=== PATIENT | female | born 1965 | race Caucasian/White ===

== ENCOUNTER 2017-12-08 11:49 | Outpatient (CLI) | payer BC, SELFPAY ==
--- NOTE | 2017-12-08 17:10 | DI.REPORT_ITS ---
SYMPTOM/DIAGNOSIS: SCREENING. BILATERAL SCREENING MAMMOGRAM: Mammograms were interpreted according to the usual protocol including computer analysis with CAD system, tomosynthesis and C view imaging. The patient's previous exams from [facility] in [place], [place] was requested however, is not yet received. If the previous exams become available an addendum will be issued. The patient is status post breast reduction. The breasts are composed of scattered fibroglandular densities, breast density category B. No suspicious masses or suspicious microcalcifications are seen. IMPRESSION: Category 1-B, negative mammogram. Routine screening is recommended. [facility] ASSESSMENT OF FINDINGS: Negative. Category 1. Patient will receive a letter notifying them of these results. BI-RADS category B. There are scattered areas of fibroglandular density.
== END 2017-12-08 11:50 ==
PROVIDERS: PCP Nurse Practitioner Family; Visit Provider Nurse Practitioner Family
DX: Z12.31 Encounter for screening mammogram for malignant neoplasm of breast (principal)
CPT/HCPCS: 77063; 77067

== ENCOUNTER 2018-03-12 06:10 | Day surgery (SDC) | payer BC, SELFPAY ==
[2018-03-12 06:26] VITALS: BP 110/74; PULSE 82; RESP 19; TEMP 36.5; O2SAT 99
[2018-03-12] MEDS: Lactated Ringers 1,000 ML 30 ML IV (07:15)
--- NOTE | 2018-03-12 08:06 | W.COLOREPORT ---
Date of service: 03/12/18 Time of Service: 07:40 Colonoscopy Report Date of procedure: 03/12/18 Pre-op diagnosis general: Colorectal cancer screening Post-op diagnosis procedure note: other (Normal colon to the cecum) Procedure: Colonoscopy to the cecum Surgeon: Randall Sood Anesthesia proc note operative: MAC (Terry Robins CRNA; ASA 2 Mallampati class II) Estimated blood loss (mL): 0 Pathology: none sent Complications: None Disposition: same day Indications: 53-year-old female presenting for colorectal cancer screening by colonoscopy. She has no family history of colorectal cancer, and has been asymptomatic. The colonoscopy procedure is been reviewed with her. The risks of the procedure have been discussed. All her questions been answered to her satisfaction. Consents been obtained to proceed with colonoscopy. Prep: Miralax/Dulcolax Procedure Start Time: :40 Procedure End Time: 07:54 Retraction Time: 8 Findings: In examining the colon from cecum to anus, no abnormalities were noted. Procedure Description: The patient was seen in the day surgery waiting area. Her identification was confirmed, and procedure checked. She was then brought to the procedure room. Monitoring for telemetry, blood pressure, oxygen saturation, and end tidal CO2 monitoring were applied. An appropriate time out was performed to confirm, identification, allergies, medication, procedure, was performed. Sedation was titrated for affect by the COMMERCIAL ENGINEER; Once adequate sedation was achieved, I performed a inspection of the external perineum, and a digitial rectal examination. No significant external abnormalities were noted. On digital rectal examination, there was no blood, no masses, good rectal tone. I advanced the colonoscope from the anus to the cecum under direct visualization. The cecum was identified by the ileal-cecal valve, and the appendiceal orifice. The scope was then withdrawn in circumferential manner from the cecum to the rectum. No abnormalites were noted in the colon. The scope was then withdrawn into the rectum, and retroflexed. No abnormalities were noted of the rectum or anorectal junction. The scope was then withdrawn, terminating the procedure. There were no complications during the procedure, and the patient tolerated the procedure well. She was returned to the day surgery recovery area in good condition. Plan: Will continue with routine screening for colorectal cancer according to current consensus guidelines, which is currently 10 years.
--- NOTE | 2018-03-12 08:12 | W.PM.DSUDISC ---
Discharge Plan Disposition Patient Disposition: HOME Condition: Good Discharge Details Reason For Visit: SCREENING Attending Provider: Randall Sood Primary Care Provider: Meseret Hayward Home Meds and New Rx's Prescriptions: Continue bupropion HCl [Wellbutrin XL] 300 mg tablet extended release 24 hr 300 mg PO QAM Qty: 90 RF: 3 mometasone [Nasonex] 50 mcg/actuation spray,non-aerosol 1 - 2 spray Intranasal DAILY PRN (Reason: allergy symptoms) Qty: 17 RF: 3 fexofenadine-pseudoephedrine [Cheli-D 12 Hour] 1 EACH tablet extended release 12 hr 1 tab-cap PO BID PRNQty: 60 RF: 0 albuterol sulfate [ProAir HFA] 8.5 GM HFA aerosol inhaler 1 - 2 puff Inhalation Q4H PRN RF: 0 buspirone 10 MG tablet 10 mg PO BID PRNQty: 90 RF: 3 Varicella-Zoster Ge/As01b/Pf [Shingrix Vial Kit] 50 MCG INJ 50 mcg IM ONCE Qty: 1 RF: 1 spironolactone 25 MG tablet 50 mg PO BID RF: 0 rizatriptan [Maxalt] 10 MG tablet 10 mg PO DAILY PRNQty: 10 RF: 3 ibuprofen 600 MG tablet 600 mg PO QID PRNRF: 0 jgeumpb-QW-IE-acetaminophen-GG [Vicks DayQuil-NyQuil Severe] 6.25-5-325 mg/15 mL (nt) Liquid, Sequential 30 ml PO RF: 0 iclxjmy-VC-TN-acetaminophen-GG [Day-Nite Severe Cold-Flu] 6.25-5-10-325 mg (nt) Tablets, Sequential 30 ml PO RF: 0 Discharge Instructions Instructions: Colonoscopy (DC) Stand Alone Forms: Colonoscopy Post Instructions, Aneesh Juarez (DSU) Activity:: Activity as Tolerated Diet:: As Tolerated Discharge Orders Discharge Orders: Discharge Order (Routine); Ordered 03/12/18 Ordered By: Randall Sood DS: Diagnosis Discharge Diagnosis (1) Colon cancer screening: Start date: 03/12/18 Start time: 07:40 Status: Acute Asessment and Plan: Colonoscopy performed Colonoscopy Report Date of procedure: 03/12/18 Pre-op diagnosis general: Colorectal cancer screening Post-op diagnosis procedure note: other (Normal colon to the cecum) Procedure: Colonoscopy to the cecum Surgeon: Randall Sood Anesthesia proc note operative: MAC (Terry Robins CRNA; ASA 2 Mallampati class II) Estimated blood loss (mL): 0 Pathology: none sent Complications: None Disposition: same day Indications: 53-year-old female presenting for colorectal cancer screening by colonoscopy. She has no family history of colorectal cancer, and has been asymptomatic. The colonoscopy procedure is been reviewed with her. The risks of the procedure have been discussed. All her questions been answered to her satisfaction. Consents been obtained to proceed with colonoscopy. Prep: Miralax/Dulcolax Procedure Start Time: 07:40 Procedure End Time: 07:54 Retraction Time: 8 Findings: In examining the colon from cecum to anus, no abnormalities were noted. Procedure Description: The patient was seen in the day surgery waiting area. Her identification was confirmed, and procedure checked. She was then brought to the procedure room. Monitoring for telemetry, blood pressure, oxygen saturation, and end tidal CO2 monitoring were applied. An appropriate time out was performed to confirm, identification, allergies, medication, procedure, was performed. Sedation was titrated for affect by the POST ACUTE CARE NURSE; Once adequate sedation was achieved, I performed a inspection of the external perineum, and a digitial rectal examination. No significant external abnormalities were noted. On digital rectal examination, there was no blood, no masses, good rectal tone. I advanced the colonoscope from the anus to the cecum under direct visualization. The cecum was identified by the ileal-cecal valve, and the appendiceal orifice. The scope was then withdrawn in circumferential manner from the cecum to the rectum. No abnormalites were noted in the colon. The scope was then withdrawn into the rectum, and retroflexed. No abnormalities were noted of the rectum or anorectal junction. The scope was then withdrawn, terminating the procedure. There were no complications during the procedure, and the patient tolerated the procedure well. She was returned to the day surgery recovery area in good condition. Plan: Will continue with routine screening for colorectal cancer according to current consensus guidelines, which is currently 10 years.
--- NOTE | 2018-03-12 08:16 | PDOC.DSDIS_ITS ---
Discharge Plan Disposition Patient Disposition: HOME Condition: Good Discharge Details Reason For Visit: SCREENING Attending Provider: Randall Sood Primary Care Provider: Meseret Hayward Home Meds and New Rx's Prescriptions: Continue bupropion HCl [Wellbutrin XL] 300 mg tablet extended release 24 hr 300 mg PO QAM Qty: 90 RF: 3 mometasone [Nasonex] 50 mcg/actuation spray,non-aerosol 1 - 2 spray Intranasal DAILY PRN (Reason: allergy symptoms) Qty: 17 RF: 3 fexofenadine-pseudoephedrine [Cheli-D 12 Hour] 1 EACH tablet extended release 12 hr 1 tab-cap PO BID PRNQty: 60 RF: 0 albuterol sulfate [ProAir HFA] 8.5 GM HFA aerosol inhaler 1 - 2 puff Inhalation Q4H PRN RF: 0 buspirone 10 MG tablet 10 mg PO BID PRNQty: 90 RF: 3 Varicella-Zoster Ge/As01b/Pf [Shingrix Vial Kit] 50 MCG INJ 50 mcg IM ONCE Qty: 1 RF: 1 spironolactone 25 MG tablet 50 mg PO BID RF: 0 rizatriptan [Maxalt] 10 MG tablet 10 mg PO DAILY PRNQty: 10 RF: 3 ibuprofen 600 MG tablet 600 mg PO QID PRNRF: 0 vqhznha-XS-AF-acetaminophen-GG [Vicks DayQuil-NyQuil Severe] 6.25-5-325 mg/15 mL (nt) Liquid, Sequential 30 ml PO RF: 0 lznyqoo-TU-US-acetaminophen-GG [Day-Nite Severe Cold-Flu] 6.25-5-10-325 mg (nt ) Tablets, Sequential 30 ml PO RF: 0 Discharge Instructions Instructions: Colonoscopy (DC) Stand Alone Forms: Colonoscopy Post Instructions, Aneesh Juarez (DSU) Activity:: Activity as Tolerated Diet:: As Tolerated Discharge Orders Discharge Orders: Discharge Order (Routine); Ordered 03/12/18 Ordered By: Randall Sood DS: Diagnosis Discharge Diagnosis (1) Colon cancer screening: Start date: 03/12/18 Start time: 07:40 Status: Acute Asessment and Plan: Colonoscopy performed Colonoscopy Report Date of procedure: 03/12/18 Pre-op diagnosis general: Colorectal cancer screening Post-op diagnosis procedure note: other (Normal colon to the cecum) Procedure: Colonoscopy to the cecum Surgeon: Randall Sood Anesthesia proc note operative: MAC (Terry Robins CRNA; ASA 2 Mallampati class II) Estimated blood loss (mL): 0 Pathology: none sent Complications: None Disposition: same day Indications: 53-year-old female presenting for colorectal cancer screening by colonoscopy. She has no family history of colorectal cancer, and has been asymptomatic. The colonoscopy procedure is been reviewed with her. The risks of the procedure have been discussed. All her questions been answered to her satisfaction. Consents been obtained to proceed with colonoscopy. Prep: Miralax/Dulcolax Procedure Start Time: 07:40 Procedure End Time: 07:54 Retraction Time: 8 Findings: In examining the colon from cecum to anus, no abnormalities were noted. Procedure Description: The patient was seen in the day surgery waiting area. Her identification was confirmed, and procedure checked. She was then brought to the procedure room. Monitoring for telemetry, blood pressure, oxygen saturation, and end tidal CO2 monitoring were applied. An appropriate time out was performed to confirm, identification, allergies, medication, procedure, was performed. Sedation was titrated for affect by the PATTERN STORAGE CLERK; Once adequate sedation was achieved, I performed a inspection of the external perineum, and a digitial rectal examination. No significant external abnormalities were noted. On digital rectal examination, there was no blood, no masses, good rectal tone. I advanced the colonoscope from the anus to the cecum under direct visualization. The cecum was identified by the ileal-cecal valve, and the appendiceal orifice. The scope was then withdrawn in circumferential manner from the cecum to the rectum. No abnormalites were noted in the colon. The scope was then withdrawn into the rectum, and retroflexed. No abnormalities were noted of the rectum or anorectal junction. The scope was then withdrawn, terminating the procedure. There were no complications during the procedure, and the patient tolerated the procedure well. She was returned to the day surgery recovery area in good condition. Plan: Will continue with routine screening for colorectal cancer according to current consensus guidelines, which is currently 10 years.
[2018-03-12 08:20] VITALS: BP 98/66; PULSE 69; RESP 16; TEMP 35.6; O2SAT 100
== END 2018-03-12 08:49 | disposition home or self-care (01) ==
PROVIDERS: PCP Nurse Practitioner Family; Visit Provider Surgery
PROC: 0DJD8ZZ Inspection of Lower Intestinal Tract, Via Natural or Artificial Opening Endoscopic (ICD-10-PCS; CPT 45378; principal; 2018-03-12 07:30)
DX: Z12.11 Encounter for screening for malignant neoplasm of colon (principal)
CPT/HCPCS: 45378

== ENCOUNTER 2019-07-01 08:39 | Outpatient (CLI) | payer BC, SELFPAY ==
--- NOTE | 2019-07-01 09:00 | DI.RAD_ITS ---
EXAM: XR SHOULDER RT COMPLETE 2+V INDICATION: Pain in R shoulder, lateral pain, decreased ROM M25.519 PAIN SHOULDER. COMPARISON: No exams were available for comparison TECHNIQUE: 2D digital imaging was performed. FINDINGS: Is mild spurring at the AC joint. There are few subchondral cysts. There is mild spurring at the un dersurface of the acromion. The glenohumeral joint is unremarkable. There are no tendon or joint sp fabian calcifications. IMPRESSION: Ocuk-fb-nngcmhes degenerative changes of the AC joint. DATA REPOSITORY: RADIATION DOSE DELIVERED:
== END 2019-07-01 08:59 ==
PROVIDERS: PCP Nurse Practitioner Family; Visit Provider Family Medicine
DX: M25.511 Pain in right shoulder (principal); M25.811 Other specified joint disorders, right shoulder; M19.011 Primary osteoarthritis, right shoulder
CPT/HCPCS: 73030

== ENCOUNTER 2019-12-02 07:52 | Outpatient (CLI) | payer BC, SELFPAY ==
[2019-12-05 07:52] LABS: SARS-CoV-2 RNA Undetected (Undetected); SARS-CoV-2 Specimen Source Nasopharynx
== END 2019-12-02 08:12 ==
PROVIDERS: PCP Nurse Practitioner Family; Visit Provider Nurse Practitioner Family
DX: Z11.59 Encounter for screening for other viral diseases (principal)
CPT/HCPCS: U0003

== ENCOUNTER 2020-12-17 03:18 | Outpatient (CLI) | payer BC, SELFPAY ==
[2020-12-17 15:32] LABS: Anion Gap 6.8 mmol/L (3-11); BUN 12 mg/dL (7-18); CO2 29.2 mmol/L (21.0-32.0); CREATININE 0.9 mg/dL (0.55-1.02); Calcium 9.2 mg/dL (8.5-10.1); Chloride 106 mmol/L (98-107); Glucose 87 mg/dL (74-106); Potassium 4.2 mmol/L (3.5-5.1); Sodium 142 mmol/L (136-145)
[2020-12-19 10:33] LABS: HIV-1/2 Ag & Ab Screen Negative (Negative)
[2020-12-19 10:40] LABS: Hepatitis C Ab w Rflx HCV PCR Negative (Negative)
== END 2020-12-17 03:19 | disposition home or self-care (01) ==
LOC: LBO 03:18
PROVIDERS: PCP Family Medicine; Visit Provider Nurse Practitioner Family
DX: Z13.1 Encounter for screening for diabetes mellitus (principal); Z11.4 Encounter for screening for human immunodeficiency virus [HIV]; Z11.59 Encounter for screening for other viral diseases
CPT/HCPCS: 36415; 80048; 86803; 87389

== ENCOUNTER 2020-12-28 03:38 | Outpatient (CLI) | payer BC, SELFPAY ==
--- NOTE | 2020-12-28 12:52 | DI.RAD_ITS ---
Exam(s) XR LUMBAR SPINE COMPLETE EXAM: XR LUMBAR SPINE COMPLETE CLINICAL HISTORY: Pain after a sneeze, previous lumbar frx, M54.5 TECHNIQUE: COMPARISON: No exams were available for comparison FINDINGS: Five views were obtained. Note is made of an apparent gallstone in the right upper quadrant. There is marked disc space narrowing at L5-S1 consistent with disc degeneration. Otherwise intervert ebral disc spaces are well maintained. There are mild hypertrophic changes involving facet joints an d endplates, particularly in the lower lumbar region. There is no evidence of compression fracture. There is no evidence spondylolysis spondylolisthesis. IMPRESSION: Mild degenerative changes of the lumbosacral spine. Degenerative changes are predominantly at L4-5 and L5-S1 levels. RADIATION DOSE DELIVERED: Total DLP
== END 2020-12-28 03:58 ==
PROVIDERS: PCP Family Medicine; Visit Provider Family Medicine
DX: M54.5 Low back pain (principal); Z87.81 Personal history of (healed) traumatic fracture; M51.36 Other intervertebral disc degeneration, lumbar region; M51.37 Other intervertebral disc degeneration, lumbosacral region
CPT/HCPCS: 72110

== ENCOUNTER 2021-03-02 19:27 | Observation (INO) | payer BC, SELFPAY ==
[2021-03-02] VITALS (23 sets, daily range): BP systolic 116–136; BP diastolic 58–72; PULSE 59–82; RESP 18; TEMP 36.1–36.8; O2SAT 92–100
--- NOTE | 2021-03-02 19:45 | RT.EKG_ITS ---
APPROVED REPORT Exam: Resting ECG Reason for Exam: epigastric pain Patient Location: E HR:68 bpm ECG Measurements Heart Rate 68 AXIS WY 151 P 69 QRSd 93 QRS -23 QT 404 T 32 QTc 431 Conclusion Sinus rhythm...normal P axis, V-rate 60- 99 Normal [place] Normal Electrocardiogram
--- NOTE | 2021-03-02 19:45 | DI.CT_ITS ---
Exam(s) CT ABDOMEN PELVIS W EXAM: CT ABDOMEN PELVIS W CLINICAL HISTORY: abdominal pain, epigastric, vomiting persistently. TECHNIQUE: Imaging Protocol: Axial computed tomography images with coronal and sagittal reformatted images were created and reviewed CONTRAST MATERIAL: Intravenous: Omnipaque 100cc Oral: None COMPARISON: No exams were available for comparison FINDINGS: VISUALIZED LUNG BASES: No nodules nor pleural effusions evident. ABDOMEN: SKIN-SUBCUTANEOUS: There is a well-defined 1.2 by 1.4 cm subcutaneous density over the anterior right abdomen which is contiguous with the subdermis but does not extend to the anterior abdominal wall mu sculature. There is no surrounding streaking. No other similar findings are seen elsewhere in the a bdomen and pelvis subcutaneous tissues. There is no ascites. LIVER: There are no focal hepatic lesions evident. No dilatation of intrahepatic ducts. GALLBLADDER/BILIARY: There is a large 2.9 x 2.6 cm lamellated gallstone located in the gallbladder ne ck. The gallbladder is somewhat distended but does not appear edematous and there is no pericholecys tic fluid. CBD diameter is upper normal. No calculi seen in the CBD. PANCREAS: No evidence of pancreatic mass nor dilatation of the pancreatic duct. SPLEEN: Spleen is not enlarged. No obvious intrasplenic lesions. Splenic and portal veins are paten t. ADRENALS: There are no significant adrenal masses. KIDNEYS:Bilateral extrarenal pelves are noted. However, no evidence of significant UPJ obstruction. No hydronephrosis. No calculi. No solid renal masses.. ABDOMINAL AORTA: Abdominal aorta is not enlarged. LYMPH NODES:There is no retroperitoneal nor paraaortic adenopathy. ABDOMINAL WALL: No evidence of significant anterior abdominal wall nor inguinal hernia. GI: There is no evidence of bowel obstruction, free air, nor abscess. PELVIS: GI: Appendix is not visualized. No indirect evidence of acute appendicitis.No evidence of sigmoid di verticulitis. LYMPH NODES: There is no intrapelvic nor inguinal adenopathy. REPRODUCTIVE: The uterus is surgically absent. The ovaries are seen. There is a small cyst in the l eft ovary which measures 10 x 11 millimeters. No free fluid in the pelvis. URINARY BLADDER: No calculi nor obvious masses evident OSSEOUS: No significant osseous lesions. Sacroiliac joints appear unremarkable. Advanced disc space narrowing noted at L5-S1 level as well as vacuum phenomenon within this diminished disc space. IMPRESSION: 1. There is a large gallstone in the gallbladder neck and the gallbladder is slightly distended but n ot edematous and there is no pericholecystic fluid. Correlation with clinical findings recommended. If clinically indicated ultrasound could be performed. This CBD and intrahepatic ducts are not dila olimpia. 2. There is a small 1.0 x 1.1 cm cyst in the left ovary. No free fluid. The uterus is surgically ab sent. 3. Appendix is not visualized. No evidence of obvious appendicitis nor diverticulitis. 4. There is a subdermal/subcutaneous well-defined noncalcified density over the anterior right abdomi nal wall measuring 12 x 14 millimeters. This does not reach the level of the abdominal musculature. This does not contain gas and there is no associated streaking in the adjacent subcutaneous fat. 5. there are few slightly prominent mesenteric lymph nodes in left side of the abdomen, these measuri ng less than 1 cm. No associated splenomegaly. RADIATION DOSE DELIVERED: 1,089.04mGy.cm Total DLP DATA REPOSITORY: All CT scans at this facility are submitted to the National Radiology Data Registry (NRDR) Dose Index Registry (DIR) with the [employer] (ACR). RADIATION OPTIMIZATION: All CT scans at this facility use at least one of these dose optimization te chniques: automated exposure control; mA and/or kV adjustment per patient size (includes targeted exa ms where dose is matched to clinical indication); or iterative reconstruction.
[2021-03-02 19:59] LABS: Abs Immature Grans 0.02 10^3/uL (0.0-0.06); Absolute Basophil Count 0.04 10^3/uL (0.0-0.2); Absolute Eosinophil Count 0.07 10^3/uL (0.0-0.7); Absolute Lymphocyte Count 1.98 10^3/uL (1.2-3.4); Absolute Monocyte Count 0.55 10^3/uL (0.1-0.8); Absolute Neutrophil Count 5.43 10^3/uL (1.2-6.7); Basophils % 0.5; Eosinophils % 0.9; HCT 44.7 % (36.0-46.0); HGB 14.5 g/dL (11.2-15.7); Immature Grans % 0.2; Lymphocytes % 24.5; MCH 29.3 pg (27.0-33.0); MCHC 32.4 % (32.0-36.0); MCV 90.3 fL (80-95); MPV 9.2 fL (8.0-11.0); Monocytes % 6.8; Neutrophils % 67.1; Nucleated RBC 0 %; Platelet Count 325 10^3/uL (130-400); RBC 4.95 10^6/uL (3.93-5.22); RDW 12.9 % (11.7-14.6); RDW-SD 42.5 fL; WBC 8.09 10^3/uL (4.4-10.8)
[2021-03-02] MEDS: Normal Saline 1,000 ML 1000 ML IV (20:01)
[2021-03-02] MEDS: fentaNYL 100 MCG/2 ML VIAL 50 MCG IVP ×2 (20:02→22:00)
[2021-03-02 20:13] LABS: ALT 29 U/L (14-59); AST 13 U/L (15-37); Albumin 4.6 g/dL (3.4-5.0); Alkaline Phosphatase 86 U/L (46-116); BUN 14 mg/dL (7-18); CREATININE 1.1 mg/dL (0.55-1.02); Calcium 9.8 mg/dL (8.5-10.1); Chloride 103 mmol/L (98-107); Estimated GFR 51.57 (mL/min/1.73m2); Glucose 102 mg/dL (74-106); Lipase 85 U/L (73-393); Magnesium 2.1 mg/dL (1.8-2.4); Potassium 3.4 mmol/L (3.5-5.1); Sodium 142 mmol/L (136-145); Total Protein 8.7 g/dL (6.4-8.2)
[2021-03-02] MEDS: FAMOTIDINE 20 MG/50 ML BAG 200 MG IVPB (20:13)
[2021-03-02 20:18] LABS: Troponin I < 0.05 ng/mL (<0.06)
[2021-03-02] MEDS: Omnipaque 350 MG/ML 100 ML BTL IJ (20:43)
--- NOTE | 2021-03-02 21:05 | W.ED.GENAD ---
Discharge Plan Disposition Patient Disposition: [facility] INPATIENT Condition: Stable Discharge Details Clinical Impression: Biliary colic Admit Date/Time: 03/02/21 21:34 Admit Provider: Whintey Noonan Attending Provider: Whitney Noonan Primary Care Provider: Sourav Perales ED Provider: Shani Darby Discharge Data Discharge Date/Time-TO BE ENTERED AT DEPARTURE: 03/02/21 22:14 Medical Decision Making Discussed with Dr. Noonan this patient has persistent pain and vomiting despite analgesia and antiemetic Patient have 2.6 cm gallstone I suspect biliary colic She'll need admission for pain control, analgesia, hydration, and possible intervention, Dr. Noonan is willing to admit Patient receiving second dose of Phenergan and 50 micrograms of fentanyl for pain and emesis Medical Records Medical records reviewed: Yes I reviewed the patient's medical records. Lab Data Lab results reviewed: Yes I reviewed the patient's lab results. HPI General Mode of arrival: ambulatory. Date/Time Provider Initiated Documentation: 03/02/21 19:28. Limitations to Documentation: no limitations. Information obtained by: patient. HPI Narrative: This 56-year-old female with history of ADHD, depression presents with report of right upper quadrant pain with persistent vomiting since Thursday. Patient evaluated by pcp previously and was started on Zofran for nausea. Denies any chest pain or shortness of breath. Has had persistent vomiting. Unable to eat or drink anything secondary to pain and emesis. Denies prior history of similar symptoms in the past. Denies known fatty food exacerbation. History of hysterectomy without any additional intra-abdominal surgeries. Denies any chance of . Denies fever or chills. Denies any spoiled food exposure. Denies any recent antibiotics. Related Data Home Medications Medication Instructions Recorded Confirmed mometasone 50 mcg/actuation nasal 1 - 2 spray INTRANASAL DAILY PRN 03/03/18 03/02/21 spray #17 gm buspirone 10 mg tablet 10 mg PO BID PRN #180 tab-cap 11/08/18 03/02/21 albuterol sulfate 90 mcg/actuation 1 - 2 puff INHALATION .Q4-6H PRN 11/14/19 12/24/20 aerosol inhaler #3 unit bupropion HCl 300 mg 24 hr tablet, 300 mg PO QAM #90 tab-cap 05/02/20 03/02/21 extended release fexofenadine 60 mg-pseudoephedrine 1 tab PO BID PRN #60 tab-cap 12/24/20 03/02/21 ER 120 mg tablet,ext.release,12 hr methocarbamol 750 mg tablet 750 mg PO Q8H PRN #90 tab 12/24/20 03/02/21 rizatriptan 10 mg tablet 10 mg PO DAILY PRN #30 tab-cap 12/24/20 03/02/21 ondansetron HCl [Zofran] 4 mg PO Q6H #20 tab 03/03/21 ondansetron HCl [Zofran] 4 mg PO Q6H #20 tab 03/03/21 03/02/21 tramadol 50 mg PO Q6H PRN #14 tab 03/03/21 Previous Rx's Medication Instructions Recorded mometasone 50 mcg/actuation nasal 1 - 2 spray INTRANASAL DAILY PRN 03/03/18 spray #17 gm buspirone 10 mg tablet 10 mg PO BID PRN #180 tab-cap 11/08/18 albuterol sulfate 90 mcg/actuation 1 - 2 puff INHALATION .Q4-6H PRN 11/14/19 aerosol inhaler #3 unit bupropion HCl 300 mg 24 hr tablet, 300 mg PO QAM #90 tab-cap 05/02/20 extended release fexofenadine 60 mg-pseudoephedrine 1 tab PO BID PRN #60 tab-cap 12/24/20 ER 120 mg tablet,ext.release,12 hr methocarbamol 750 mg tablet 750 mg PO Q8H PRN #90 tab 12/24/20 rizatriptan 10 mg tablet 10 mg PO DAILY PRN #30 tab-cap 12/24/20 ondansetron HCl [Zofran] 4 mg PO Q6H #20 tab 03/03/21 ondansetron HCl [Zofran] 4 mg PO Q6H #20 tab 03/03/21 tramadol 50 mg PO Q6H PRN #14 tab 03/03/21 Allergies Allergy/AdvReac Type Severity Reaction Status Date / Time phenazopyridine Allergy Severe Anaphylaxsi Verified 03/02/21 19:39 s clindamycin phosphate Allergy Mild Nausea Verified 03/02/21 19:39 [From Cleocin] Penicillins Allergy Mild Hives, Verified 03/02/21 19:39 high fever Sulfa (Sulfonamide Allergy Mild Hives Verified 03/02/21 19:39 Antibiotics) nitrofurantoin AdvReac Unknown Vomiting Verified 03/02/21 19:39 [From Macrobid] nitrofurantoin AdvReac Unknown Vomiting Verified 03/02/21 19:39 macrocrystalline [From Macrobid] clindamycin HCl AdvReac Nausea Verified 03/02/21 19:39 [From Cleocin] clindamycin palmitate HCl AdvReac Nausea Verified 03/02/21 19:39 [From Cleocin] dye Allergy Severe unknown Uncoded 03/02/21 19:39 which one, pt will call General Stated Complaint: Abd Prob CHAR: 2 Review of Systems All systems reviewed & are unremarkable except as noted in HPI and below PFSH Medical History (Updated 03/02/21 @ 21:59 by Whitney Noonan DO) Abnormal auditory perception (05/08/15) Adult acne (12/14/17) [place] [facility] [place] consult: spironolactone Rx Allergic rhinitis (02/28/15) Anxiety (01/10/15) Asthma NOT formally diagnosed Atopic dermatitis Attention deficit disorder Depression (02/01/15) Deviated nasal septum (04/30/15) Low back pain Migraines Postnasal drip (04/30/15) Surgical History H/O colonoscopy (03/12/18) dr zhao, no abnormalities, repeat ten years Reduction mammoplasty (05/04/03) Vaginal hysterectomy fallopian tube prolapse after Ovaries remain Family History Maternal Aunt Neoplasm Ovarian CA Father Cataract Social History (Updated 12/24/20 @ 13:52 by Essence Dixon LPN) Smoking/Tobacco Use Status: Never Smoking risk assessment performed?: Yes Alcohol Intake: current Alcohol Intake frequency: holidays/special occasions only Drug use: Never Substance use type: does not use Adopted: No Caregiver/Support person: No Foster care: No Household members: family and children Housing: house Number of Children: 2 Communication Needs: None and Corrective Lenses Do you need help understanding health information?: Rarely current occupation: Teacher Pets and animals: Yes Pets and animals: cat(s) and dog(s) Sexually active: No Current gender identity: decline to answer What is your relationship status?: refused to answer How often do you talk on the phone with friends or family?: decline to answer How often do you get together with friends or relatives?: decline to answer How often do you attend religion or mormonism services?: decline to answer Do you belong to any clubs or organized social groups?: decline to answer Panel score (0-1 are the most socially isolated patients): 0 What type of physical activity do you participate in: walking Duration: 15-30 minutes/day Frequency: daily Mily/Yazdanism: Anabaptist Special mily needs: No Seatbelt use: always Helmet use: Yes Drive intox or ride w/intox experienced truck driver: No Working smoke detector in home: No Carbon monox detector in home: No Do you feel safe at home: Yes Do you feel safe in your relationship?: Yes Female Reproductive History Menstrual Menopause type: surgical Exam Const General: cooperative and ill appearing HENNE Mouth: oral mucosae normal Eyes Pupils: PERRL Resp Effort & Inspection: normal respiratory effort Auscultation: clear to auscultation bilaterally Cardio Rate: regular rate Rhythm: regular rhythm GI Other: Right upper quadrant and epigastrium tenderness, guarding, no rebound No CVA tenderness, no abdominal bruit or pulsatile mass Skin General skin exam: no rashes or lesions noted Other: pallor Neuro General: patient alert and patient oriented x3 Extrem General: normal to inspection Other: distal pulses intact Course Vital Signs Vital signs: Vital Signs Temperature 36.1 C L 03/02/21 19:32 Pulse 80 03/02/21 19:32 Respiratory Rate 18 03/02/21 19:32 Blood Pressure 123/71 03/02/21 19:32 Pulse Oximetry 100 03/02/21 19:32 Temperature 36.1 C L 03/02/21 19:32 Temperature Source Temporal Artery Scan 03/02/21 19:32 Pulse 82 03/02/21 20:47 Respiratory Rate 18 03/02/21 19:32 Respiratory Effort 03/02/21 19:42 Blood Pressure 123/71 03/02/21 19:32 Pulse Oximetry 95 03/02/21 20:47 Oxygen Delivery Method Room Air 03/02/21 20:47 Oxygen Flow Rate 0 03/02/21 20:47 Pain Level 11 03/02/21 19:32 Lab/Test Results Lab/Test Results: Laboratory Tests Range/Units 03/02/21 03/02/21 19:40 19:40 WBC (4.4-10.8) 10^3/uL 8.09 RBC (3.93-5.22) 10^6/uL 4.95 Hgb (11.2-15.7) g/dL 14.5 Hct (36.0-46.0) % 44.7 MCV (80-95) fL 90.3 MCH (27.0-33.0) pg 29.3 MCHC (32.0-36.0) % 32.4 RDW (11.7-14.6) % 12.9 Plt Count (130-400) 10^3/uL 325 MPV (8.0-11.0) fL 9.2 Immature Gran % 0.2 Neutrophils % 67.1 Lymphocytes % 24.5 Monocytes % 6.8 Eosinophils % 0.9 Basophils % 0.5 Nucleated RBC % % 0 Absolute Neutrophils (1.2-6.7) 10^3/uL 5.43 Absolute Lymphocytes (1.2-3.4) 10^3/uL 1.98 Absolute Monocytes (0.1-0.8) 10^3/uL 0.55 Absolute Eosinophils (0.0-0.7) 10^3/uL 0.07 Absolute Basophils (0.0-0.2) 10^3/uL 0.04 Sodium (136-145) mmol/L 142 Potassium (3.5-5.1) mmol/L 3.4 L Chloride (98-107) mmol/L 103 Carbon Dioxide (21.0-32.0) mmol/L 28.0 Anion Gap (3-11) mmol/L 11.0 BUN (7-18) mg/dL 14 Creatinine (0.55-1.02) mg/dL 1.1 H Estimated GFR/1.73 m2 (mL/min/1.73m2) 51.57 Glucose (74-106) mg/dL 102 Calcium (8.5-10.1) mg/dL 9.8 Magnesium (1.8-2.4) mg/dL 2.1 Total Bilirubin (0.2-1.0) mg/dL 1.0 AST (15-37) U/L 13 L ALT (14-59) U/L 29 Alkaline Phosphatase (46-116) U/L 86 Troponin I (<0.06) ng/mL < 0.05 Total Protein (6.4-8.2) g/dL 8.7 H Albumin (3.4-5.0) g/dL 4.6 Lipase (73-393) U/L 85
--- NOTE | 2021-03-02 21:12 | DI.VRAD_ITS ---
PROCEDURE INFORMATION: Exam: CT Abdomen And Pelvis With Contrast Exam date and time: 03/02/2021 7:57 PM Age: 56 years old Clinical indication: Vomiting TECHNIQUE: Imaging protocol: Computed tomography of the abdomen and pelvis with contrast. COMPARISON: CR XR LUMBAR SPINE COMPLETE 12/28/2020 12:45 PM FINDINGS: Lungs: Lung bases are clear. Liver: Normal. No mass. Gallbladder and bile ducts: A large lamellated calcified stone is noted in the gallbladder, 2.6 cm. Gallbladder is mildly distended. There are no inflammatory changes by CT. No significant biliary ductal dilatation. Pancreas: Normal. No ductal dilation. Spleen: Normal. No splenomegaly. Adrenal glands: Normal. No mass. Kidneys and ureters: Negative for hydronephrosis. Symmetric enhancement. Nondilated ureters. No stones. Stomach and bowel: Unremarkable stomach. Nondilated small bowel. Mild wall thickening in the jejunum. Unremarkable terminal ileum. No inflammatory changes around the colon. Appendix: Normal appendix. Intraperitoneal space: Negative for free fluid or free air. Negative for abscess. Mild mesenteric fat stranding left abdomen. Vasculature: Unremarkable. No abdominal aortic aneurysm. Lymph nodes: Unremarkable. No enlarged lymph nodes. Urinary bladder: Unremarkable as visualized. Reproductive: Absent uterus. Unremarkable ovaries. Bones/joints: Moderate narrowing with endplate sclerosis and osteophyte formation noted at L5-S1. Moderate bilateral neural foraminal narrowing L5-S1. Soft tissues: Unremarkable. IMPRESSION: 1. Findings of enteritis with reactive mesenteric inflammation. 2. Large calcified gallstone. No specific findings of cholecystitis by CT. Dictated and Authenticated by: Shaheen Lomeli MD. Ordering:NATALIE Mcleod MD
[2021-03-02 21:52] LABS: Source Nasal/Nares
--- NOTE | 2021-03-02 21:55 | W.SURGCON ---
Date of service: 03/03/21 Time of Service: 14:00 Assessment and Plan Assessment and plan (1) Biliary colic: Status: Acute (2) Migraines: Status: Chronic (3) Attention deficit disorder: Status: Chronic Qualifiers: Attention deficit-hyperactivity disorder type: unspecified Hyperactivity presence: present Qualified Code(s): F90.9 - Attention-deficit hyperactivity disorder, unspecified type (4) Gallstone of bile duct with chronic gallbladder inflammation: Status: Acute Assessment and plan: Plan: The patient will be scheduled for laparoscopic cholecystectomy. The alternatives to surgery, risks, complications, and the possible need to convert to open cholecystectomy were discussed. Also bleeding, infection, pneumonia, blood clots, complications of anesthesia, damage to bowel, bladder, blood vessels, or bile ducts, liver, need for blood transfusions. Also: chronic pain, chronic diarrhea, reoccurrence of signs and symptoms, port site hernias, adhesions. All questions were answered and the patient elected to proceed with surgery. Also d/w pt dietary restrictions and warning signs of when to go to ER. Patient wants to go home today. She is feeling better. She is given an patient on low-fat/gallbladder diet. She should basically just stay on clear liquids and take the Zofran scheduled. But she should probably also take some MiraLAX or some milk of magnesia as the Zofran will make her very constipated. I will see her in the clinic at 9 AM on 03 04 and we will get her scheduled for surgery at that point. If she feels that she is having too much pain or starts vomiting again she should come back to the emergency room. Patient expressed understanding and will follow up tomorrow. We will plan surgery on 03/05. 60 minutes spent in total today doing consultation. (5) Dehydration, moderate: Status: Acute (6) Hypokalemia due to excessive gastrointestinal loss of potassium: Status: Acute (7) Intractable nausea and vomiting: Status: Acute History of Present Illness Narrative: Pt came to ED w/ RUQ pain and intractible vomiting. Pt has 2cm gallstone. NO signs of acute oneyda. pt is dehydrated w/ K 3.2. Patient states this is actually her third gallbladder attack she just did not realize what was. The pain is in the epigastric to right upper quadrant area he pretty much stays there. She has some back problems this is more so in the low back. She does have some changes of osteoarthritis on her x-rays. This last episode has been ongoing for about a week. She is only been able to eat clears. She has had severe pain and severe nausea. Days she is feeling better. She has no nausea no pain and she has been tolerating clear liquid She has had a hysterectomy and a tummy tuck with umbilical stump reimplanted. She still has her ovaries in place. She does appear to have a small hernia in the umbilicus. She is slow to wake up from anesthesia She is not diabetic. She is not not a smoker. She is never had a heart attack or stroke. She has no problems with hypertension. She has adult onset asthma. It does not limit her from doing her act activities of daily living. She has a lot of allergic type phenomenon. She had seen her PCP on . He had thought that this was gastritis or GERD. He had given her prescription for Zofran but this did not help. The Phenergan seemed to help more with her nausea. Consults Consult date: 03/03/21 Review of Systems All systems reviewed & are unremarkable except as noted in HPI and below [facility] Medical History (Updated 03/02/21 @ 21:59 by Whitney Noonan DO) Abnormal auditory perception (05/08/15) Adult acne (12/14/17) 12/14/2017 [facility] [place] Derm consult: spironolactone Rx Allergic rhinitis (02/28/15) Anxiety (01/10/15) Asthma NOT formally diagnosed Atopic dermatitis Attention deficit disorder Depression (02/01/15) Deviated nasal septum (04/30/15) Low back pain Migraines Postnasal drip (04/30/15) Surgical History H/O colonoscopy (03/12/18) dr zhao, no abnormalities, repeat ten years Reduction mammoplasty (05/04/03) Vaginal hysterectomy fallopian tube prolapse after Ovaries remain Family History Maternal Aunt Neoplasm Ovarian CA Father Cataract Social History (Updated 12/24/20 @ 13:52 by Essence Dixon LPN) Smoking/Tobacco Use Status: Never Smoking risk assessment performed?: Yes Alcohol Intake: current Alcohol Intake frequency: holidays/special occasions only Drug use: Never Substance use type: does not use Adopted: No Caregiver/Support person: No Foster care: No Household members: family and children Housing: house Number of Children: 2 Communication Needs: None and Corrective Lenses Do you need help understanding health information?: Rarely current occupation: Teacher Pets and animals: Yes Pets and animals: cat(s) and dog(s) Sexually active: No Current gender identity: decline to answer What is your relationship status?: refused to answer How often do you talk on the phone with friends or family?: decline to answer How often do you get together with friends or relatives?: decline to answer How often do you attend gnosticism or cheondoism services?: decline to answer Do you belong to any clubs or organized social groups?: decline to answer Panel score (0-1 are the most socially isolated patients): 0 What type of physical activity do you participate in: walking Duration: 15-30 minutes/day Frequency: daily Mily/Mormon: Adventism Special mily needs: No Seatbelt use: always Helmet use: Yes Drive intox or ride w/intox spotter driver: No Working smoke detector in home: No Carbon monox detector in home: No Do you feel safe at home: Yes Do you feel safe in your relationship?: Yes Female Reproductive History Menstrual Menopause type: surgical Exam Const General: cooperative, healthy appearing, comfortable, no acute distress, well developed and well groomed Nutritional Appearance: average body habitus and well nourished Orientation: alert, awake and oriented x3 HENMT Head: normal to inspection, normocephalic and atraumatic Ears: hearing grossly normal bilaterally and external ears normal General nose exam: external nose normal Face and sinus: normal facial exam and sinuses nontender Mouth: oral mucosae normal, lip normal, tongue normal and moist mucous membranes Teeth and gingiva: dentition normal Eyes General: appearance normal, both eyes and all related structures Conjunctivae: conjunctivae normal Sclera: sclerae normal Pupils: PERRL Neck Neck: normal visual inspection and full ROM Chest Chest: normal inspection of the chest Resp Effort & Inspection: normal respiratory effort, able to speak in complete sentences, no cough, no nasal flaring, not tachypneic and no use of accessory muscles Auscultation: clear to auscultation bilaterally, no rales, no rhonchi and no wheezes Cardio Jugular venous pressure: no JVD Rate: regular rate Rhythm: regular rhythm GI Inspection: normal to inspection, no edema and non-distended Palpation: soft, no masses, nontender and No ascites Auscultation: normal bowel sounds Other: She currently has no pain. When she was having pain it was in the epigastric and then radiated up into the right upper quadrant under the ribs. Did not radiate into the back. She has been having attacks off and on for at least a month. She had a tummy tuck and umbilical stump reimplanted. Is she does have a small umbilical hernia Skin General skin exam: no rashes or lesions noted Trauma: no lacerations or abrasions Neuro General: patient alert, patient oriented x3, oriented, gait normal, moves all extremities, no focal motor deficits and CN's II-XI intact bilaterally Cognition: normal cognition Speech: speech normal Gait: normal gait Motor: muscle tone normal throughout Extrem General: normal to inspection, full ROM and no clubbing, cyanosis or edema Psych Appearance: grossly normal and well kempt Mental Status: mental status grossly normal Speech and Movement: speech and movement normal Affect: normal affect Results Last Vital Signs Temp 36.1 C L 03/02/21 19:32 Pulse 82 03/02/21 20:47 Resp 18 03/02/21 19:32 BP 123/71 03/02/21 19:32 Pulse Ox 95 03/02/21 20:47 Labs Result diagrams: 03/03/21 06:18 03/03/21 06:18 Labs: Laboratory Results - last 24 hr 03/02/21 03/02/21 03/02/21 19:40 19:40 21:45 WBC 8.09 RBC 4.95 Hgb 14.5 Hct 44.7 MCV 90.3 MCH 29.3 MCHC 32.4 RDW 12.9 Plt Count 325 MPV 9.2 Immature Gran % 0.2 Neutrophils % 67.1 Lymphocytes % 24.5 Monocytes % 6.8 Eosinophils % 0.9 Basophils % 0.5 Nucleated RBC % 0 Absolute Neutrophils 5.43 Absolute Lymphocytes 1.98 Absolute Monocytes 0.55 Absolute Eosinophils 0.07 Absolute Basophils 0.04 Sodium 142 Potassium 3.4 L Chloride 103 Carbon Dioxide 28.0 Anion Gap 11.0 BUN 14 Creatinine 1.1 H Estimated GFR/1.73 m2 51.57 Glucose 102 Calcium 9.8 Magnesium 2.1 Total Bilirubin 1.0 AST 13 L ALT 29 Alkaline Phosphatase 86 Troponin I < 0.05 Total Protein 8.7 H Albumin 4.6 Lipase 85 COVID-19 Source Nasal/Nares
[2021-03-02 22:06] LABS: INR 1.1 (0.9-1.1); Prothrombin Time 10.6 sec (9.3-11.0)
[2021-03-02] MEDS: Lactated Ringers 1,000 ML 125 ML IV (22:15)
[2021-03-02 22:46] LABS: COVID-19 PCR Negative (Negative)
[2021-03-02] MEDS: MORPHine 2 MG/ML SYR IVP (23:34)
[2021-03-03] MEDS: FAMOTIDINE 20 MG/50 ML BAG 200 MG IVPB ×2 (00:48→10:04)
[2021-03-03] MEDS: MORPHine 2 MG/ML SYR IVP (03:17)
[2021-03-03] MEDS: Ondansetron 4 MG/2 ML VIAL IVP (04:12)
[2021-03-03 07:04] LABS: Abs Immature Grans 0.02 10^3/uL (0.0-0.06); Absolute Basophil Count 0.04 10^3/uL (0.0-0.2); Absolute Eosinophil Count 0.01 10^3/uL (0.0-0.7); Absolute Lymphocyte Count 1.72 10^3/uL (1.2-3.4); Absolute Monocyte Count 0.63 10^3/uL (0.1-0.8); Absolute Neutrophil Count 5.81 10^3/uL (1.2-6.7); Basophils % 0.5; Eosinophils % 0.1; HCT 38.9 % (36.0-46.0); HGB 12.3 g/dL (11.2-15.7); Immature Grans % 0.2; Lymphocytes % 20.9; MCH 29.2 pg (27.0-33.0); MCHC 31.6 % (32.0-36.0); MCV 92.4 fL (80-95); MPV 9.2 fL (8.0-11.0); Monocytes % 7.7; Neutrophils % 70.6; Nucleated RBC 0 %; Platelet Count 284 10^3/uL (130-400); RBC 4.21 10^6/uL (3.93-5.22); RDW 13.1 % (11.7-14.6); RDW-SD 44.6 fL; WBC 8.23 10^3/uL (4.4-10.8)
[2021-03-03 07:26] LABS: ALT 22 U/L (14-59); AST 12 U/L (15-37); Albumin 3.6 g/dL (3.4-5.0); Alkaline Phosphatase 71 U/L (46-116); Anion Gap 11.6 mmol/L (3-11); BUN 11 mg/dL (7-18); Bilirubin, Total 0.8 mg/dL (0.2-1.0); CO2 25.4 mmol/L (21.0-32.0); CREATININE 0.8 mg/dL (0.55-1.02); Calcium 8.8 mg/dL (8.5-10.1); Chloride 106 mmol/L (98-107); Glucose 106 mg/dL (74-106); Potassium 3.9 mmol/L (3.5-5.1); Sodium 143 mmol/L (136-145); Total Protein 6.9 g/dL (6.4-8.2)
[2021-03-03 07:35] VITALS: BP 126/73; PULSE 63; RESP 18; TEMP 37.2; O2SAT 97
[2021-03-03 07:35] LABS: C-Reactive Protein 0.91 mg/dL (0.0-0.3); Lipase 71 U/L (73-393)
--- NOTE | 2021-03-03 07:37 | INITIAL_ITS ---
- If Service Date Differs Date of service: 03/03/21 Time of Service: 07:37 Care Management Initial Assess REASON FOR HOSPITALIZATION:: Biliary Colic, Gallstone of bile duct, Dehydration, Hypokalemia PAST MEDICAL HISTORY/PAST SURGICAL HISTORY:: Medical History (Updated 03/02/21 @ 21:59 by Whitney Noonan DO). Abnormal auditory perception (05/08/15). Adult acne (12/14/17). [place] [facility] [place]erm consult: spironolactone Rx. Allergic rhinitis (02/28/15). Anxiety (01/10/15). Asthma. NOT formally diagnosed. Atopic dermatitis. Attention deficit disorder. Depression (02/01/15). Deviated nasal septum (04/30/15). Low back pain. Migraines. Postnasal drip (04/30/15). Surgical History . H/O colonoscopy (03/12/18). dr zhao, no abnormalities, repeat ten years. Reduction mammoplasty (05/04/03). Vaginal hysterectomy. fallopian tube prolapse after. Ovaries remain PREVIOUS FUNCTIONAL STATUS/SOCIAL/FAMILY SUPPORTS:: Felipa lives in [facility] with her elderly Aunt. She has a son in the [place] and a daughter in college in [facility]. She also has three dogs. Felipa is independent at baseline and drives. She is her aunts caregiver and shared that her mother and neighbor are overseeing her aunts care while she's in the hospital. CURRENT FUNCTIONAL STATUS:: Felipa was lying in bed when CM met with her. She is alert and oriented X3, pleasant and easily engaged in conversation. She denies pain and shared that her nausea and vomiting has been much better since she was given a Zofran injection early this morning. She found the sublingual Zofran prescribed by her doctor to be relatively ineffective. ADVANCE DIRECTIVES:: None, CM reviewed goals of Advance Directives and patient accepted a blank copy. Has patient been provided with info about the portal/API?: Yes Did the patient sign up for the portal?: No CODE STATUS:: Full Code INSURANCE COVERAGE / FINANCIAL ISSUES:: [employer]RICIA KUMAR CURRENT HOME/COMMUNITY SERVICES/EQUIPMENT:: None PRIMARY CARE PHYSICIAN:: Dr. Sourav Perales POTENTIAL DISCHARGE NEEDS:: Follow up appointments PATIENT/FAMILY EDUCATION NEEDS:: Review discharge instructions, limitations and plan to follow up with community providers. ask me three. TRANSPORTATION:: Via private vehicle with family. PLAN:: Anticipate Feilpa will be discharged home with no new services when medically cleared by MD. Will follow up with community providers and discharge plan of care as prescribed.
[2021-03-03] MEDS: Normal Saline Flush 10 ML SYR IVP (07:55)
[2021-03-03] MEDS: buPROPion-XL 150 MG TABCR 300 MG PO (07:55)
[2021-03-03] MEDS: Ketorolac 15 MG/ML VIAL IVP (07:55)
--- NOTE | 2021-03-03 14:37 | W.PM.DS.N ---
Date of service: 03/03/21 Time of Service: 14:38 DS: Diagnosis Discharge Diagnosis (1) Biliary colic: Status: Acute (2) Migraines: Status: Chronic (3) Attention deficit disorder: Status: Chronic (4) Gallstone of bile duct with chronic gallbladder inflammation: Status: Acute (5) Dehydration, moderate: Status: Acute (6) Hypokalemia due to excessive gastrointestinal loss of potassium: Status: Acute (7) Intractable nausea and vomiting: Status: Acute Discharge Plan Disposition Patient Disposition: HOME Condition: Stable Discharge Details Reason For Visit: Dehydration, N/V from gallstones Admit Date/Time: 03/02/21 21:34 Admit Provider: Whitney Noonan Attending Provider: Whitney Noonan Primary Care Provider: Sourav Perales Brinkley Meds and New Rx's Prescriptions: New ondansetron HCl [Zofran] 4 mg tablet 4 mg PO Q6H Qty: 20 RF: 0 tramadol 50 mg tablet 50 mg PO Q6H PRNQty: 14 RF: 0 Continued mometasone [Nasonex] 50 mcg/actuation spray,non-aerosol 1 - 2 spray Intranasal DAILY PRN (Reason: allergy symptoms) Qty: 17 RF: 3 fexofenadine-pseudoephedrine [Cheli-D 12 Hour] 60-120 mg tablet extended release 12 hr 1 tab PO BID PRN (Reason: sinus symptoms) Qty: 60 RF: 0 rizatriptan [Maxalt] 10 mg tablet 10 mg PO DAILY PRN (Reason: migraine headache) Qty: 30 RF: 3 methocarbamol 750 mg tablet 750 mg PO Q8H PRN (Reason: back spasms) Qty: 90 RF: 1 buspirone 10 mg tablet 10 mg PO BID PRN (Reason: anxiety) Qty: 180 RF: 3 albuterol sulfate [ProAir HFA] 90 mcg/actuation HFA aerosol inhaler 1 - 2 puff Inhalation .Q4-6H PRN (Reason: shortness of breath or wheezing) Qty: 3 RF: 3 bupropion HCl [Wellbutrin XL] 300 mg tablet extended release 24 hr 300 mg PO QAM Qty: 90 RF: 3 Changed ondansetron HCl [Zofran] 4 mg tablet 4 mg PO Q6H Qty: 20 RF: 0 Discontinued ibuprofen 800 mg tablet 800 mg PO Q8H PRN (Reason: pain) Qty: 90 RF: 3 Varicella-Zoster Ge/As01b/Pf [Shingrix Vial Kit] 50 MCG INJ 50 mcg IM ONCE Qty: 1 RF: 1 Vicks DayQuil-NyQuil Severe 6.25-5-325 mg/15 mL (nt) Liquid, Sequential 30 ml PO RF: 0 Day-Nite Severe Cold-Flu 6.25-5-10-325 mg (nt) Tablets, Sequential 30 ml PO RF: 0 Discharge Instructions Additional Instructions: -take zofran every 6hrs scheduled for nausea -Zofran will make you very constipated. Take Miralax of Milk of magnesia daily. -tramadol for pain -stick w/ clear liquids. (jello,Popsicle,low fat broth, etc). Avoid any diarrhea or Pork, or any food w/ high fat content (nuts, peanut butter, avacadoes, etc) -F/u w/ Dr. Noonan at 9am Thursday at [facility]. We are local at in the [facility] across from the hospital. Parking lot B. -don't take any ibuprofen/ASA/aleve. This may irritate your stomach. Tylenol (1000mg po every 6hrs as needed for pain). -Hold the spironalactone at this time. -if you have return of severe pain or uncontrolled nausea- return to the ER. -? Go easy on fat. Avoid high-fat foods, fried and greasy foods, and fatty sauces and gravies. Instead, choose nonfat or low-fat foods. Read labels and look for foods with 3 grams of fat or less a serving. High-fat foods include: ? Foods that are fried, like Korean fries and potato chips ? High-fat meats, such as gould, bologna, sausage, ground beef, and ribs, pork products ? High-fat dairy products, such as cheese, ice cream, cream, whole milk, and sour cream ? Pizza ? Foods made with lard or butter ? Creamy soups or sauces ? Meat gravies ? Chocolate ? Oils, such as palm and coconut oil ? Skin of chicken or turkey Nuts and nut butters Avocadoes Stand Alone Forms: Nursing Discharge Form Activity:: rest Equipment/Supplies:: No Equipment Needed Diet:: clears/low fat Discharge Orders Discharge Orders: Discharge Order (Routine); Ordered 03/03/21 Ordered By: Whitney Noonan DS: Summary Time Spent with Patient providing and/or coordinating discharge services: Less than 30 minutes Status at Discharge Functional status at discharge: independent ambulation Overall status at discharge: patient is progressing back to baseline Mental Status: mental status grossly normal Speech and Movement: speech and movement normal Mood: congruent mood Affect: normal affect Exam Psych Mental Status: mental status grossly normal Speech and Movement: speech and movement normal Mood: congruent mood Affect: normal affect DS: Data Vitals/I&O Vitals and I&O: Vital Signs Temperature 37.2 C 03/03/21 07:35 Temperature Source Tympanic 03/03/21 07:35 Pulse 63 03/03/21 07:35 Pulse Rhythm Regular 03/03/21 08:40 Respiratory Rate 18 03/03/21 07:35 Respiratory Effort Non-Labored 03/03/21 08:40 Respiratory Depth Normal 03/03/21 08:40 Respiratory Pattern Normal 03/03/21 08:40 Blood Pressure 126/73 03/03/21 07:35 Blood Pressure Mean 79 03/02/21 22:01 Pulse Oximetry 97 03/03/21 07:35 Oxygen Delivery Method Room Air 03/03/21 07:35 Oxygen Flow Rate 0 03/03/21 07:35 Pain Level 1 03/03/21 07:55 Intake & Output 03/02/21 03/03/21 03/03/21 23:59 11:59 23:59 Intake Total 1250.5 / 1250.5 1018.75 / 1018.75 Output Total 350 / 350 Balance 1250.5 / 1250.5 668.75 / 668.75 Weight 77.1 kg Intake: IV 1150.5 / 1150.5 1018.75 / 1018.75 Oral 100 / 100 Output: Urine 350 / 350 Other: Urine Color Yellow Urine Appearance Clear Cloudy Urine Odor Normal Voiding Methods Toilet Data Completed and Pending Labs on day of discharge: Labs from last 24 hours 03/03/21 03/03/21 03/02/21 06:18 06:18 21:45 WBC 8.23 RBC 4.21 Hgb 12.3 D Hct 38.9 MCV 92.4 MCH 29.2 MCHC 31.6 L RDW 13.1 Plt Count 284 MPV 9.2 Immature Gran % 0.2 Neutrophils % 70.6 Lymphocytes % 20.9 Monocytes % 7.7 Eosinophils % 0.1 Basophils % 0.5 Nucleated RBC % 0 Absolute Neutrophils 5.81 Absolute Lymphocytes 1.72 Absolute Monocytes 0.63 Absolute Eosinophils 0.01 Absolute Basophils 0.04 PT 10.6 INR 1.1 Sodium 143 Potassium 3.9 Chloride 106 Carbon Dioxide 25.4 Anion Gap 11.6 H BUN 11 Creatinine 0.8 Estimated GFR/1.73 m2 >= 60.00 Glucose 106 Calcium 8.8 Magnesium Total Bilirubin 0.8 AST 12 L ALT 22 Alkaline Phosphatase 71 Troponin I C-Reactive Protein 0.91 H Total Protein 6.9 Albumin 3.6 Lipase 71 COVID-19 Source SARS-CoV-2 (PCR) 03/02/21 03/02/21 03/02/21 21:45 19:40 19:40 WBC 8.09 RBC 4.95 Hgb 14.5 Hct 44.7 MCV 90.3 MCH 29.3 MCHC 32.4 RDW 12.9 Plt Count 325 MPV 9.2 Immature Gran % 0.2 Neutrophils % 67.1 Lymphocytes % 24.5 Monocytes % 6.8 Eosinophils % 0.9 Basophils % 0.5 Nucleated RBC % 0 Absolute Neutrophils 5.43 Absolute Lymphocytes 1.98 Absolute Monocytes 0.55 Absolute Eosinophils 0.07 Absolute Basophils 0.04 PT INR Sodium 142 Potassium 3.4 L Chloride 103 Carbon Dioxide 28.0 Anion Gap 11.0 BUN 14 Creatinine 1.1 H Estimated GFR/1.73 m2 51.57 Glucose 102 Calcium 9.8 Magnesium 2.1 Total Bilirubin 1.0 AST 13 L ALT 29 Alkaline Phosphatase 86 Troponin I < 0.05 C-Reactive Protein Total Protein 8.7 H Albumin 4.6 Lipase 85 COVID-19 Source Nasal/Nares SARS-CoV-2 (PCR) Negative [facility] Medical History (Updated 03/02/21 @ 21:59 by Whitney Noonan DO) Abnormal auditory perception (05/08/15) Adult acne (12/14/17) 12/14/2017 [facility] [place] Derm consult: spironolactone Rx Allergic rhinitis (02/28/15) Anxiety (01/10/15) Asthma NOT formally diagnosed Atopic dermatitis Attention deficit disorder Depression (02/01/15) Deviated nasal septum (04/30/15) Low back pain Migraines Postnasal drip (04/30/15) Surgical History H/O colonoscopy (03/12/18) dr zhao, no abnormalities, repeat ten years Reduction mammoplasty (05/04/03) Vaginal hysterectomy fallopian tube prolapse after Ovaries remain Family History Maternal Aunt Neoplasm Ovarian CA Father Cataract Social History (Updated 12/24/20 @ 13:52 by Essence Dixon LPN) Smoking/Tobacco Use Status: Never Smoking risk assessment performed?: Yes Alcohol Intake: current Alcohol Intake frequency: holidays/special occasions only Drug use: Never Substance use type: does not use Adopted: No Caregiver/Support person: No Foster care: No Household members: family and children Housing: house Number of Children: 2 Communication Needs: None and Corrective Lenses Do you need help understanding health information?: Rarely current occupation: Teacher Pets and animals: Yes Pets and animals: cat(s) and dog(s) Sexually active: No Current gender identity: decline to answer What is your relationship status?: refused to answer How often do you talk on the phone with friends or family?: decline to answer How often do you get together with friends or relatives?: decline to answer How often do you attend evangelical or bahai services?: decline to answer Do you belong to any clubs or organized social groups?: decline to answer Panel score (0-1 are the most socially isolated patients): 0 What type of physical activity do you participate in: walking Duration: 15-30 minutes/day Frequency: daily Mily/Religious: Restorationist Special mily needs: No Seatbelt use: always Helmet use: Yes Drive intox or ride w/intox 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
[2021-03-03 14:52] VITALS: BP 123/81; PULSE 64; RESP 18; TEMP 36.2; O2SAT 100
[2021-03-03] MEDS: Polyethylene Glycol 3350 17 GM PACKET PO (15:01)
== END 2021-03-03 15:32 | disposition home or self-care (01) ==
LOC: ER 21:53 → MS 22:17
PROVIDERS: Admitting Provider Surgery; Emergency Provider Physician Assistant; PCP Family Medicine; Visit Provider Surgery
DX: K80.44 Calculus of bile duct with chronic cholecystitis without obstruction (principal); R11.10 Vomiting, unspecified; F98.8 Other specified behavioral and emotional disorders with onset usually occurring in childhood and adolescence; E86.0 Dehydration; E87.6 Hypokalemia; F41.9 Anxiety disorder, unspecified; J45.909 Unspecified asthma, uncomplicated; F32.A Depression, unspecified; M54.50 Low back pain, unspecified; Z20.822 Contact with and (suspected) exposure to COVID-19; Z79.899 Other long term (current) drug therapy
CPT/HCPCS: 36415; 80053; 83690; 87635; 93005; 96361; 96365; 96368; 96375; 96376; 99285; J1650; 74177; 83735; 84484; 85025; 85610; 86140; 93010; G0378; J1885; J2270; J2405; J3010; J3490

== ENCOUNTER 2021-03-05 17:08 | Observation (INO) | payer BC, SELFPAY ==
[2021-03-05] VITALS (15 sets, daily range): BP systolic 95–127; BP diastolic 50–78; PULSE 62–75; RESP 15–23; TEMP 35.9–37.1; O2SAT 95–100; BMI 32.3
--- NOTE | 2021-03-05 08:05 | ANES.PREOP_ITS ---
General Info Date of Service Date Performed: 03/05/21 Height: 5 ft 1.5 in Weight: 78.925 kg Body Mass Index (BMI): 32.3 Surgical Procedure: Operation Date: 03/05/21 12:25 Proposed Procedures Side Surgeon p Cholecystectomy Laparoscopic, possible open Whitney Noonan, Meds Allergies and Home Medications Allergies Allergy/AdvReac Type Severity Reaction Status Date / Time phenazopyridine Allergy Severe Anaphylaxsi Verified 03/05/21 11:02 s clindamycin phosphate Allergy Mild Nausea Verified 03/05/21 11:02 [From Cleocin] Penicillins Allergy Mild Hives, Verified 03/05/21 11:02 high fever Sulfa (Sulfonamide Allergy Mild Hives Verified 03/05/21 11:02 Antibiotics) nitrofurantoin AdvReac Unknown Vomiting Verified 03/05/21 11:02 [From Macrobid] nitrofurantoin AdvReac Unknown Vomiting Verified 03/05/21 11:02 macrocrystalline [From Macrobid] clindamycin HCl AdvReac Nausea Verified 03/05/21 11:02 [From Cleocin] clindamycin palmitate HCl AdvReac Nausea Verified 03/05/21 11:02 [From Cleocin] dye Allergy Severe unknown Uncoded 03/05/21 11:02 which one, pt will call Home Medication Medication Instructions Recorded mometasone 50 mcg/actuation nasal 1 - 2 spray INTRANASAL DAILY PRN 03/03/18 spray #17 gm buspirone 10 mg tablet 10 mg PO BID PRN #180 tab-cap 11/08/18 albuterol sulfate 90 mcg/actuation 1 - 2 puff INHALATION .Q4-6H PRN 11/14/19 aerosol inhaler #3 unit bupropion HCl 300 mg 24 hr tablet, 300 mg PO QAM #90 tab-cap 05/02/20 extended release fexofenadine 60 mg-pseudoephedrine 1 tab PO BID PRN #60 tab-cap 12/24/20 ER 120 mg tablet,ext.release,12 hr rizatriptan 10 mg tablet 10 mg PO DAILY PRN #30 tab-cap 12/24/20 ondansetron HCl [Zofran] 4 mg PO Q6H #20 tab 03/03/21 tramadol 50 mg PO Q6H PRN #14 tab 03/03/21 Current Visit Medications: Current Medications Generic Name Dose Route Start Last Admin Trade Name Maurizioq PRN Reason Stop Dose Admin Acetaminophen 1,000 mg 03/05/21 06:00 Acetaminophen 500 Mg Tab PO 04/03/21 23:59 PREOP QUINTIN Gabapentin 300 mg 03/05/21 06:00 Gabapentin 300 Mg Cap PO 04/03/21 23:59 PREOP QUINTIN Ringer's Solution 1,000 mls @ 80 mls/hr 03/05/21 06:00 IV 04/03/21 23:59 INFUSION QUINTIN Piperacillin Sod/Tazobactam 50 mls @ 100 mls/hr 03/05/21 06:00 Sod 3.375 gm/ Sodium Chloride IVPB 03/05/21 18:00 PREOP QUINTIN Ondansetron HCl 4 mg/ Sodium 52 mls @ 200 mls/hr 03/04/21 23:34 Chloride IVPB Q6H PRN PRN IV Miscellaneous Supplies 1 each 03/05/21 06:00 Iv Access IV 04/03/21 23:59 DIRECTED QUINTIN Morphine Sulfate 2 mg 03/04/21 23:34 Morphine 4 Mg/Ml Syr IVP Q1H PRN PRN Sodium Chloride 0 ml 03/05/21 06:00 Normal Saline Flush 10 Ml Syr IV 04/03/21 23:59 PRN PRN Sodium Chloride 0 ml 03/05/21 06:00 Normal Saline 10 Ml Vial IJ 04/03/21 23:59 DIRECTED PRN Sterile Water 0 ml 03/05/21 06:00 Water,Injection,Sterile 10 Ml Vial IJ 04/03/21 23:59 DIRECTED PRN Tramadol HCl 50 mg 03/04/21 23:34 Tramadol 50 Mg Tab PO Q6H PRN PRN Pain PFSH Active Problems Active Problems: Problem Status Onset Code Intractable nausea and vomiting R11.2 Hypokalemia due to excessive gastrointestinal loss of potassium E87.6 Dehydration, moderate E86.0 Gallstone of bile duct with chronic gallbladder inflammation K80.40 Biliary colic K80.50 Low back pain M54.5 Asthma J45.909 Migraines G43.909 Atopic dermatitis L20.9 Screening for hyperlipidemia 11/02/17 Z13.220 Postnasal drip 04/30/15 R09.82 Nasal obstruction 04/30/15 J34.89 Deviated nasal septum 04/30/15 J34.2 Depression 02/01/15 F32.9 Attention deficit disorder F98.8 Anxiety 01/10/15 F41.9 Allergic rhinitis 02/28/15 J30.9 Adult acne 12/14/17 L70.9 Abnormal auditory perception 05/08/15 H93.299 Medical History Medical History Abnormal auditory perception (05/08/15) [place] (12/14/17) [place] [facility] [place] consult: spironolactone Rx Allergic rhinitis (02/28/15) Anxiety (01/10/15) Asthma NOT formally diagnosed Atopic dermatitis Attention deficit disorder Depression (02/01/15) Deviated nasal septum (04/30/15) Low back pain Migraines Postnasal drip (04/30/15) Surgical History Surgical History H/O colonoscopy (03/12/18) dr zhao, no abnormalities, repeat ten years Reduction mammoplasty (05/04/03) Vaginal hysterectomy fallopian tube prolapse after Ovaries remain Tobacco Smoking/Tobacco Use Status: Never Alcohol Alcohol Intake: current Alcohol intake frequency: holidays/special occasions only Substance Use Substance use: Never Substance use type: does not use Vital Signs and Lab Results Lab Results Blood Type / Crossmatch: No Data to Display Complete Blood Count: White Blood Count 8.23 10^3/uL (4.4-10.8) 03/03/21 06:18 03/03/21 Red Blood Count 4.21 10^6/uL (3.93-5.22) 03/03/21 06:18 03/03/21 Hemoglobin 12.3 g/dL (11.2-15.7) 03/03/21 06:18 03/03/21 Hematocrit 38.9 % (36.0-46.0) 03/03/21 06:18 03/03/21 Platelet Count 284 10^3/uL (130-400) 03/03/21 06:18 03/03/21 Complete Metabolic Panel: Sodium Level 143 mmol/L (136-145) 03/03/21 06:18 03/03/21 Potassium Level 3.9 mmol/L (3.5-5.1) 03/03/21 06:18 03/03/21 Chloride Level 106 mmol/L (98-107) 03/03/21 06:18 03/03/21 Carbon Dioxide Level 25.4 mmol/L (21.0-32.0) 03/03/21 06:18 03/03/21 Blood Urea Nitrogen 11 mg/dL (7-18) 03/03/21 06:18 03/03/21 Creatinine 0.8 mg/dL (0.55-1.02) 03/03/21 06:18 03/03/21 Estimated GFR/1.73 m2 >= 60.00 (mL/min/1.73m2) 03/03/21 06:18 03/03/21 Magnesium Level 2.1 mg/dL (1.8-2.4) 03/02/21 19:40 03/02/21 Calcium Level 8.8 mg/dL (8.5-10.1) 03/03/21 06:18 03/03/21 Albumin 3.6 g/dL (3.4-5.0) 03/03/21 06:18 03/03/21 Glucose Level 106 mg/dL (74-106) 03/03/21 06:18 03/03/21 C-Reactive Protein 0.91 mg/dL (0.0-0.3) H 03/03/21 06:18 03/03/21 Liver Function Panel: Alanine Aminotransferase (ALT/SGPT) 22 U/L (14-59) 03/03/21 06:18 03/03/21 Aspartate Amino Transf (AST/SGOT) 12 U/L (15-37) L 03/03/21 06:18 03/03/21 Coagulation Panel: INR International Normalized Ratio 1.1 (0.9-1.1) 03/02/21 21:45 03/02/21 Prothrombin Time 10.6 sec (9.3-11.0) 03/02/21 21:45 03/02/21 Cardiac Panel: Troponin I < 0.05 ng/mL (<0.06) 03/02/21 19:40 03/02/21 Arterial Blood Gas: No Data to Display Venous Blood Gas: No Data to Display Pancreas Panel: Lipase 71 U/L (73-393) 03/03/21 06:18 03/03/21 Thyroid Panel: No Data to Display Infectious Disease: Coronavirus (COVID-19)(PCR) Negative (Negative) 03/02/21 21:45 03/02/21 Coronavirus 2019 Source Nasal/Nares 03/02/21 21:45 03/02/21 Blood Cultures: No Data to Display Toxicology Panel: No Data to Display Imaging and Studies Imaging and Studies EKG Summary: 03/2021: Sinus rhythm. Anesthesia Assessment and Plan Anesthesia History Personal History: No History of Anesthesia Complications and PONV Family History: No Family History of Anesthesia Complications Exercise Tolerance Exercise Tolerance: Metabolic Equivalents>4 Cardiac & Pulmonary Exam Cardiac Exam: Normal S1/S2 Heart Sounds Pulmonary Exam: Clear Bilateral Breath Sounds Airway Exam Known Difficult Airway: No Mallampati Class: 3 Mouth Opening: Narrow (< 3cm) Thyromental Distance: Greater than 3 cm Neck Range of Motion: Full ROM Neck Circumference: Normal Teeth Condition: Normal Dentition and Fixed Braces ASA Classification ASA Score: ASA 2 Emergency Case?: No NPO Status NPO Status: NPO Clears >2 hours, Solids >8 hours Anesthesia Plan Resuscitation Status: Full Code Anesthesia Technique: General Anesthesia Airway Planned: Endotracheal Tube Monitors Used: Standard Monitors Preoperative Comments:: 56 yo female with gallstones and chronic GB inflammation for lap oneyda. Sig PMHx: Asthma (very rare albut), never smoker, occ EtOH. Previous Anes: colo/prop only no issues. states PONV in the past for almost every anes, no records here except for colo.
[2021-03-05] MEDS: Lactated Ringers 1,000 ML 80 ML IV (11:39)
[2021-03-05] MEDS: Acetaminophen 500 MG TAB 1000 MG PO (11:39)
[2021-03-05] MEDS: Gabapentin 300 MG CAP PO (11:39)
[2021-03-05] MEDS: PIPERACILLIN/TAZO 3.375 GM in Normal Saline 50 ML IVPB ×2 (13:00→23:05)
--- NOTE | 2021-03-05 14:11 | GB_PTH ---
PATIENT: Felipa Ryder LOC: U#:[id number] AGE/SX: 56/F ROOM: RE03/05/[address]: Whitney Noonan : 1965 BED: A DIS: 03/06/2021 SPEC #: [id number] RECD: 03/05/21 17:52 STATUS: VIVEK REQ #: [id number] NEELIMA: 03/05/21 14:[address]: Whitney Noonan DEPT: Surgical Specimen RECD BY: Shani Oscar ENTERED: 03/05/21 17:52 SP TYPE: GB OTHR DR: Sourav Perales DO Tissues: 1 - GALLBLADDER Procedures: GROSS AND MICRO LEVEL 3 Comments: [id number]
[2021-03-05] MEDS: Cellulose,Oxidized 4X8 1 PACKET MC (14:21)
--- NOTE | 2021-03-05 15:23 | W.PM.DSUDISC ---
Discharge Plan Disposition Patient Disposition: HOME Condition: Good Discharge Details Reason For Visit: GALL STONES Attending Provider: Whitney Noonan Primary Care Provider: Sourav Perales Home Meds and New Rx's Prescriptions: New tramadol [Ultram] 50 mg tablet 50 mg PO Q6H PRNQty: 10 RF: 0 Continued mometasone [Nasonex] 50 mcg/actuation spray,non-aerosol 1 - 2 spray Intranasal DAILY PRN (Reason: allergy symptoms) Qty: 17 RF: 3 fexofenadine-pseudoephedrine [Cheli-D 12 Hour] 60-120 mg tablet extended release 12 hr 1 tab PO BID PRN (Reason: sinus symptoms) Qty: 60 RF: 0 rizatriptan [Maxalt] 10 mg tablet 10 mg PO DAILY PRN (Reason: migraine headache) Qty: 30 RF: 3 buspirone 10 mg tablet 10 mg PO BID PRN (Reason: anxiety) Qty: 180 RF: 3 albuterol sulfate [ProAir HFA] 90 mcg/actuation HFA aerosol inhaler 1 - 2 puff Inhalation .Q4-6H PRN (Reason: shortness of breath or wheezing) Qty: 3 RF: 3 bupropion HCl [Wellbutrin XL] 300 mg tablet extended release 24 hr 300 mg PO QAM Qty: 90 RF: 3 tramadol 50 mg tablet 50 mg PO Q6H PRNQty: 14 RF: 0 ondansetron HCl [Zofran] 4 mg tablet 4 mg PO Q6H Qty: 20 RF: 0 Discharge Instructions Additional Instructions: Care after Gallbladder Surgery -Pain control: For the first 72 hours after surgery, take you pain meds continuously and not just when you have pain. Alternate Tylenol 1000mg by mouth every 8 hours, and Ibuprofen 600mg every 6 hours. Make sure you take ibuprofen with food and not on an empty stomach. Use the tramadol for breakthrough pain- pain that is greater than a 7. - Use ICE! Ice really helps to keep the swelling down, and swelling causes pain. Twenty minutes on, and then off, continuously for the first 72hours. After the first 72hrs, you can just use the Tylenol, ibuprofen or Celebrex, and ice, when you have pain. If you are taking narcotic pain medication, follow the instructions on the label and do not drive. Pain medications can make you very constipated. Make sure you are moving your bowels daily. If not, take Miralax, milk of magnesia or magnesium citrate. - Anesthesia makes you very constipated. Take a dose of milk of magnesia the morning after surgery. ? Use an ice bag for the first 72 hours. This helps to decrease swelling, which causes pain. It is normal to be more sore/painful and swollen towards the end of the day and first thing in the morning. ? Gallbladder surgery can make you very nauseated; use Zofran for nausea, for the first 24 hours. The nausea generally stops after 24 hours. ? Use milk of magnesia or prune juice to prevent constipation (this is a particular side effect of pain medication and anesthesia). Do not allow yourself to become constipated. ? Avoid fatty or greasy foods; introduce these slowly, with care, after about 1 month. High-fat foods include: ? Foods that are fried, like [place] fries and potato chips ? High-fat meats, such as gould, bologna, sausage, ground beef, and ribs, pork products ? High-fat dairy products, such as cheese, ice cream, cream, whole milk, and sour cream ? Pizza ? Foods made with lard or butter ? Creamy soups or sauces ? Meat gravies ? Chocolate ? Oils, such as palm and coconut oil ? Skin of chicken or turkey Nuts and nut butters Avacadoes ? Start out eating very small, bland amounts of food. Do not take pain pills on an empty stomach. - You will notice purple discoloration around the incisions. This is the ?skin glue?. This will wear off on its own. It is OK to shower after 24hrs. You do not need to cover the incisions. - -You should walk frequently, gradually, increasing the distance. You may climb stairs, just go slowly. ? Do not go swimming or sit in a hot tub for two weeks. ? There are no stitches to remove. ? Do not drive your car x72hrs and then only if you have no pain and can move freely. Do not drive if you are taking pain narcotic pain medications. ? You may resume sexual activity whenever pain and soreness subside, usually in 2 weeks. ? Do no lift anything over 5 lbs. for two weeks. ? You may return to work in one week, or when you feel able, provided you do not have to do any heavy lifting or prolonged standing. ? You should return to Dr. Noonan?s office for a post-op appointment about one week after surgery. Please call the Surgical Clinic at: [phone] to schedule an appointment. My Medications for pain and nausea are: Celebrex and ultram, and zofran When to Call the Office: ? If the incision becomes red or swollen, or there is more than a little drainage from it. ? If you develop a temperature higher than 100.5 F. ? If your eyes turn yellow ? Vomiting and can?t keep fluids down -Remove scopalamine patch in 72hrs. This will cause dry mouth and may make you drowsy. -F/u in 2 weeks as previously scheduled Activity:: see above Remove Dressings/Wound Care:: 24 hours Shower/Bathe:: 24 hours Diet:: low fat Discharge Orders Discharge Orders: Discharge Order (Routine); Ordered 03/04/21 Ordered By: Whitney Noonan DS: Diagnosis Discharge Diagnosis (1) Gallstone of bile duct with chronic gallbladder inflammation: Status: Acute (2) Hydrops of gallbladder: Status: Acute
--- NOTE | 2021-03-05 15:34 | W.PM.OP ---
Date of service: 03/05/21 Time of Service: 15:34 Operative Note Operative Note DATE OF PROCEDURE: 03/05/21 PRE-OP DIAGNOSIS: gallstones POST-OP DIAGNOSIS: other (sub acute oneyda/hydrops/gallstones ) PROCEDURE: lap oneyda SURGEON: Whitney Downs [employer] REPAIRER: Alissa Walker ANESTHESIA TYPE: Local By Surgeon and General LMA/ETT Refer to Anesthesia Record ESTIMATED BLOOD LOSS: 75 PATHOLOGY: other COMPLICATIONS: None Patient was transported to: PACU Patient's condition: stable Procedure Description: The pt is seen at the request of there PCP regarding acute on chronic cholecystitis, cholelithiasis. The pt has failed outpt conservative medical measures and is here today for laparoscopic cholecystectomy. Informed consent was obtained, explaining risks and benefits of the procedure including but not limited to bleeding, infection, pneumonia, blood clots, possible damage to bowel, bladder, blood vessels, bile ducts, possible open procedure, complications of general anesthesia and other unforetold complications. PROCEDURE: The patient agrees and is brought to the operative room suite and placed in supine position. Anesthesia was administered per the Department of Anesthesia. The patient did receive IV antibiotics. NG tube and Pena catheter are placed. The patient was prepped and draped in the usual sterile fashion using DuraPrep scrub solution. Pause for the cause was done. 20 mL of 1% buffered lidocaine was used for local anesthetization. The patient has had a previous abdominal plasty. Cutdown was done at the umbilicus in the standard fashion. Fingers placed in the abdomen. There were no intra-abdominal adhesions. A 10 mm Valdes trocar is placed and insufflation is begun. The camera was inserted through the port and shows no damage to underlying structures. A 5mm port was then placed in the epigastric position under direct visualization following creation of local field blocks as well as two 5 mm ports in the right upper quadrant. The omentum is adhered up to the gallbladder. This is bluntly retracted. The gallbladder is extremely distended and swollen. The wall is edematous it appears hydropic. Needle is used to decompress the gallbladder. 60 cc of white bile was removed. A clip was placed across the defect. The gallbladder fundus was grasped and retracted towards the right shoulder. Infundibulum was grasped and retracted laterally. The hepat-duodenal ligament is entered. The cystic duct and artery are dissected out and the most inferior portion of the gallbladder plate is removed from the liver and the critical view of safety was obtained after clearing away all fatty material. Endo Clips were placed across the duct and artery and these structures are divided. The remainder of the gallbladder was excised from the liver bed. The gallbladder was placed in a bag and brought out. The umbilical incision had to be extended to facilitate removal of the gallbladder. Examination of the gallbladder shows indeed the cystic duct and artery to have been divided. And there is some bleeding from the liver bed. Surgicel and FloSeal are placed. The remainder of the abdomen was copiously irrigated with a liter of saline. All saline is removed. There is no bleeding or bile leakage from the liver bed or the clips sites. All ports and instruments are removed. The umbilical defect, the fascia is closed with interrupted 0 Prolene. It is irrigated. Deep tissues closed with 4-0 Monocryl. Skin and subcutaneous tissue was closed with 4-0 Monocryl. SPonge and needle counts are correct. Pneumoperitoneum is evacuated and the port sites are monitored to make sure there is no bleeding at the time of desufflation. Port sites are irrigated and the skin is closed with 4-0 Monocryl in a running subcuticular fashion. Skin glue sterile dressings are applied. The patient tolerated the procedure well without complications, transferred to the recovery room in stable condition. WHITNEY DOWNS DO
--- NOTE | 2021-03-05 17:07 | W.PM.PROGNOT ---
Date of Service Date of service: 03/05/21 Time of Service: 17:08 Assessment and Plan Assessment and plan (1) Subacute infection: Status: Acute (2) Vaginal yeast infection: Status: Acute (3) Hydrops of gallbladder: Status: Acute (4) Intractable nausea and vomiting: Status: Acute (5) Gallstone of bile duct with chronic gallbladder inflammation: Status: Acute Subjective Subjective Interval history since last seen: pt having significant PONV. She is going to require obs for the nausea. She also has a subacute cholecystitis adn we will keep her on IV abx. She also has a vaginal yeast infection Exam Resp Auscultation: clear to auscultation bilaterally GI Other: dressing c/d/i Objective Last Vital Signs Temp 36.6 C 03/05/21 16:55 Pulse 66 03/05/21 16:55 Resp 22 03/05/21 16:55 BP 127/76 03/05/21 16:55 Pulse Ox 99 03/05/21 16:55
[2021-03-05] MEDS: Ketorolac 15 MG/ML VIAL IVP (17:10)
[2021-03-05] MEDS: ACETAMINOPHEN 1,000 MG/100 ML BTL 400 MG IVPB (20:32)
[2021-03-05] MEDS: traMADol 50 MG TAB PO (22:47)
[2021-03-06] MEDS: Ketorolac 15 MG/ML VIAL IVP ×2 (00:16→06:40)
[2021-03-06] MEDS: Normal Saline 1,000 ML 125 ML IV ×2 (00:16→09:15)
[2021-03-06] MEDS: PIPERACILLIN/TAZO 3.375 GM in Normal Saline 50 ML IVPB (02:24)
[2021-03-06] MEDS: ACETAMINOPHEN 1,000 MG/100 ML BTL 400 MG IVPB ×2 (02:58→10:25)
[2021-03-06] MEDS: Normal Saline Flush 10 ML SYR IVP (06:41)
--- NOTE | 2021-03-06 07:34 | W.PM.PROGNOT ---
Date of Service Date of service: 03/06/21 Time of Service: 07:34 Assessment and Plan Assessment and plan (1) Hydrops of gallbladder: Status: Acute Assessment and plan: POD #1 s/p laparoscopic cholecystectomy Tolerated clear liquids over night will progress diet this morning. Will follow low fat diet Pain has been well controlled over night with toradol and tylenol. Denies having any nausea or vomiting. Encouraged sitting up in the chair for meals and throughout the morning. Pulmonary toilet D/C home later today (2) Intractable nausea and vomiting: Status: Acute Assessment and plan: Resolved (3) Vaginal yeast infection: Status: Acute Assessment and plan: She will require 2 more days of Fluconazole 100mg once a day for treatment of the vaginal yeast infection. Subjective Subjective Interval history since last seen: Patient reports that she is feeling okay this morning. Denies having any nausea or vomiting. She tolerated clear liquids well over night. She reports that she is very hungry. Exam Const General: cooperative, healthy appearing and comfortable Resp Effort & Inspection: normal respiratory effort, no audible wheezes and no cough GI Palpation: soft, no guarding and tender Objective Last Vital Signs Temp 35.9 C L 03/05/21 23:50 Pulse 62 03/05/21 23:50 Resp 15 03/05/21 23:50 BP 103/67 03/05/21 23:50 Pulse Ox 96 03/05/21 23:50
--- NOTE | 2021-03-06 07:44 | DSE_ITS ---
Documented by User: RAF Hammer 03/06/21 08:03 Date of service: 03/06/21 Time of Service: 07:44 DS: Diagnosis Discharge Diagnosis (1) Hydrops of gallbladder: Status: Acute (2) Intractable nausea and vomiting: Status: Acute (3) Vaginal yeast infection: Status: Acute Discharge Plan Disposition Patient Disposition: HOME Condition: Good Discharge Details Reason For Visit: PONV S/P Lap Yessenia Admit Date/Time: 03/05/21 17:08 Admit Provider: Whitney Noonan Attending Provider: Whitney Noonan [facility] Hospital Course: 56 y/o female with billiary colic and gallstones, she under went laparoscopic cholecystectomy with Dr. Noonan. She was admitted for observation overnight secondary to post-op nausea, vomiting and pain. This improved through the evening and this morning she denies having any nausea or vomiting. She expresses abdominal tenderness, which has been well controlled with toradol and tylenol. Also of note the patient has a vaginal yeast infection, which she has been started on PO fluconazole, she will require a total of 3 days of treatment. Will send in a prescription for remaining course. Home Meds and New Rx's Prescriptions: New tramadol [Ultram] 50 mg tablet 50 mg PO Q6H PRNQty: 10 RF: 0 fluconazole 100 mg tablet 100 mg PO DAILY Qty: 2 RF: 0 Continued mometasone [Nasonex] 50 mcg/actuation spray,non-aerosol 1 - 2 spray Intranasal DAILY PRN (Reason: allergy symptoms) Qty: 17 RF: 3 fexofenadine-pseudoephedrine [Cheli-D 12 Hour] 60-120 mg tablet extended release 12 hr 1 tab PO BID PRN (Reason: sinus symptoms) Qty: 60 RF: 0 rizatriptan [Maxalt] 10 mg tablet 10 mg PO DAILY PRN (Reason: migraine headache) Qty: 30 RF: 3 buspirone 10 mg tablet 10 mg PO BID PRN (Reason: anxiety) Qty: 180 RF: 3 albuterol sulfate [ProAir HFA] 90 mcg/actuation HFA aerosol inhaler 1 - 2 puff Inhalation .Q4-6H PRN (Reason: shortness of breath or wheezing) Qty: 3 RF: 3 bupropion HCl [Wellbutrin XL] 300 mg tablet extended release 24 hr 300 mg PO QAM Qty: 90 RF: 3 tramadol 50 mg tablet 50 mg PO Q6H PRNQty: 14 RF: 0 ondansetron HCl [Zofran] 4 mg tablet 4 mg PO Q6H Qty: 20 RF: 0 Discharge Instructions Additional Instructions: Care after Gallbladder Surgery -Pain control: For the first 72 hours after surgery, take you pain meds contin uously and not just when you have pain. Alternate Tylenol 1000mg by mouth every 8 hours, and Ibuprofen 600mg every 6 hours. Make sure you take ibuprofen with food and not on an empty stomach. Use the tramadol for breakthrough pain- pain that is greater than a 7. - Use ICE! Ice really helps to keep the swelling down, and swelling causes pain. Twenty minutes on, and then off, continuously for the first 72hours. After the first 72hrs, you can just use the Tylenol, ibuprofen or Celebrex, and ice, when you have pain. If you are taking narcotic pain medication, follow the instructions on the label and do not drive. Pain medications can make you very constipated. Make sure you are moving your bowels daily. If not, take Miralax, milk of magnesia or magnesium citrate. - Anesthesia makes you very constipated. Take a dose of milk of magnesia the morning after surgery. ? Use an ice bag for the first 72 hours. This helps to decrease swelling, which causes pain. It is normal to be more sore/painful and swollen towards the end of the day and first thing in the morning. ? Gallbladder surgery can make you very nauseated; use Zofran for nausea, for the first 24 hours. The nausea generally stops after 24 hours. ? Use milk of magnesia or prune juice to prevent constipation (this is a particular side effect of pain medication and anesthesia). Do not allow yourself to become constipated. ? Avoid fatty or greasy foods; introduce these slowly, with care, after about 1 month. High-fat foods include: ? Foods that are fried, like Welsh fries and potato chips ? High-fat meats, such as gould, bologna, sausage, ground beef, and ribs, pork products ? High-fat dairy products, such as cheese, ice cream, cream, whole milk, and sour cream ? Pizza ? Foods made with lard or butter ? Creamy soups or sauces ? Meat gravies ? Chocolate ? Oils, such as palm and coconut oil ? Skin of chicken or turkey Nuts and nut butters Avacadoes ? Start out eating very small, bland amounts of food. Do not take pain pills on an empty stomach. - You will notice purple discoloration around the incisions. This is the ?skin glue?. This will wear off on its own. It is OK to shower after 24hrs. You do not need to cover the incisions. - -You should walk frequently, gradually, increasing the distance. You may climb stairs, just go slowly. ? Do not go swimming or sit in a hot tub for two weeks. ? There are no stitches to remove. ? Do not drive your car x72hrs and then only if you have no pain and can move freely. Do not drive if you are taking pain narcotic pain medications. ? You may resume sexual activity whenever pain and soreness subside, usually in 2 weeks. ? Do no lift anything over 5 lbs. for two weeks. ? You may return to work in one week, or when you feel able, provided you do not have to do any heavy lifting or prolonged standing. ? You should return to Dr. Noonan?s office for a post-op appointment about one week after surgery. Please call the Surgical Clinic at: [phone] to schedule an appointment. My Medications for pain and nausea are: Celebrex and ultram, and zofran When to Call the Office: ? If the incision becomes red or swollen, or there is more than a little drainage from it. ? If you develop a temperature higher than 100.5 F. ? If your eyes turn yellow ? Vomiting and can?t keep fluids down -Remove scopalamine patch in 72hrs. This will cause dry mouth and may make you drowsy. -F/u 03/18 at 9:30am Stand Alone Forms: Anesthesia Discharge Inst., Nursing Discharge Form Referrals: Whitney Noonan DO [OSTEOPATHIC DOCTOR] - 03/18/21 9:30 am Activity:: Activity as Tolerated Equipment/Supplies:: No Equipment Needed Diet:: low fat Discharge Orders Discharge Orders: Discharge Order (Routine); Ordered 03/04/21 Ordered By: Whitney Noonan DS: Summary Time Spent with Patient providing and/or coordinating discharge services: Less than 30 minutes Status at Discharge Functional status at discharge: independent ambulation Overall status at discharge: patient is back to baseline Mental Status: mental status grossly normal Speech and Movement: speech and movement normal Mood: congruent mood Affect: normal affect Exam Const General: cooperative, healthy appearing and comfortable Orientation: alert and oriented x3 Resp Effort & Inspection: normal respiratory effort, no audible wheezes and no cough GI Inspection: normal to inspection and non-distended Palpation: soft, no guarding and tender Psych Mental Status: mental status grossly normal Speech and Movement: speech and movement normal Mood: congruent mood Affect: normal affect DS: Data Vitals/I&O Vitals and I&O: Vital Signs Temperature 35.9 C L 03/05/21 23:50 Temperature Source Tympanic 03/05/21 23:50 Pulse 62 03/05/21 23:50 Pulse Rhythm Regular 03/06/21 04:41 Respiratory Rate 15 03/05/21 23:50 Respiratory Effort Non-Labored 03/06/21 04:41 Respiratory Depth Normal 03/06/21 04:41 Respiratory Pattern Normal 03/06/21 04:41 Blood Pressure 103/67 03/05/21 23:50 Pulse Oximetry 96 03/05/21 23:50 Respiratory End-tidal CO2 46 03/05/21 17:10 Oxygen Delivery Method Room Air 03/05/21 23:50 Oxygen Flow Rate 0 03/05/21 23:50 Pain Level 7 03/06/21 06:40 Intake & Output 03/05/21 03/06/21 03/06/21 18:59 06:59 18:59 Intake Total 460 / 1210 750 / 1210 Output Total 275 / 775 500 / 775 Balance 185 / 435 250 / 435 Weight 77.2 kg Intake: IV 450 / 1200 750 / 1200 Oral 10 10 Output: Urine 200 / 700 500 / 700 Estimated Blood Loss 75 / 75 Other: Urine Color Pale Yellow Urine Appearance Clear Clear Urine Odor None Normal Emesis Description None Voiding Methods Bedpan Toilet [facility] Medical History Abnormal auditory perception (05/08/15) Adult acne (12/14/17) 12/14/[place] [facility] [place] consult: spironolactone Rx Allergic rhinitis (02/28/15) Anxiety (01/10/15) Asthma NOT formally diagnosed Atopic dermatitis Attention deficit disorder Depression (02/01/15) Deviated nasal septum (04/30/15) Low back pain Migraines Postnasal drip (04/30/15) Surgical History H/O colonoscopy (03/12/18) dr zhao, no abnormalities, repeat ten years Reduction mammoplasty (05/04/03) Vaginal hysterectomy fallopian tube prolapse after Ovaries remain Family History Maternal Aunt Neoplasm Ovarian CA Father Cataract Social History Smoking/Tobacco Use Status: Never Smoking risk assessment performed?: Yes Alcohol Intake: current Alcohol Intake frequency: holidays/special occasions only Drug use: Never Substance use type: does not use Adopted: No Caregiver/Support person: No Foster care: No Household members: family and children Housing: house Number of Children: 2 Communication Needs: None and Corrective Lenses Do you need help understanding health information?: Rarely current occupation: Teacher Pets and animals: Yes Pets and animals: cat(s) and dog(s) Sexually active: No Current gender identity: decline to answer What is your relationship status?: refused to answer How often do you talk on the phone with friends or family?: decline to answer How often do you get together with friends or relatives?: decline to answer How often do you attend denominational or confucianist services?: decline to answer Do you belong to any clubs or organized social groups?: decline to answer Panel score (0-1 are the most socially isolated patients): 0 What type of physical activity do you participate in: walking Duration: 15-30 minutes/day Frequency: daily Mily/Gnosticist: Alevism Special mily needs: No Seatbelt use: always Helmet use: Yes Drive intox or ride w/intox 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 Female Reproductive History Menstrual Menopause type: surgical Documented by User: Georgia Miller MD 03/06/21 09:55 Discharge Plan Disposition Patient Disposition: HOME Condition: Good Discharge Details Reason For Visit: PONV S/P Lap Yessenia Admit Date/Time: 03/05/21 17:08 Admit Provider: Whitney Noonan Attending Provider: Whitney Noonan [facility] Hospital Course: 56 y/o female with billiary colic and gallstones, she under went laparoscopic cholecystectomy with Dr. Noonan. She was admitted for observation overnight secondary to post-op nausea, vomiting and pain. This improved through the evening and this morning she denies having any nausea or vomiting. She expresses abdominal tenderness, which has been well controlled with toradol and tylenol. Also of note the patient has a vaginal yeast infection, which she has been started on PO fluconazole, she will require a total of 3 days of treatment. Will send in a prescription for remaining course. Home Meds and New Rx's Prescriptions: New tramadol [Ultram] 50 mg tablet 50 mg PO Q6H PRNQty: 10 RF: 0 fluconazole 100 mg tablet 100 mg PO DAILY Qty: 2 RF: 0 Continued mometasone [Nasonex] 50 mcg/actuation spray,non-aerosol 1 - 2 spray Intranasal DAILY PRN (Reason: allergy symptoms) Qty: 17 RF: 3 fexofenadine-pseudoephedrine [Cheli-D 12 Hour] 60-120 mg tablet extended release 12 hr 1 tab PO BID PRN (Reason: sinus symptoms) Qty: 60 RF: 0 rizatriptan [Maxalt] 10 mg tablet 10 mg PO DAILY PRN (Reason: migraine headache) Qty: 30 RF: 3 buspirone 10 mg tablet 10 mg PO BID PRN (Reason: anxiety) Qty: 180 RF: 3 albuterol sulfate [ProAir HFA] 90 mcg/actuation HFA aerosol inhaler 1 - 2 puff Inhalation .Q4-6H PRN (Reason: shortness of breath or wheezing) Qty: 3 RF: 3 bupropion HCl [Wellbutrin XL] 300 mg tablet extended release 24 hr 300 mg PO QAM Qty: 90 RF: 3 tramadol 50 mg tablet 50 mg PO Q6H PRNQty: 14 RF: 0 ondansetron HCl [Zofran] 4 mg tablet 4 mg PO Q6H Qty: 20 RF: 0 Discharge Instructions Additional Instructions: Care after Gallbladder Surgery -Pain control: For the first 72 hours after surgery, take you pain meds continuously and not just when you have pain. Alternate Tylenol 1000mg by mouth every 8 hours, and Ibuprofen 600mg every 6 hours. Make sure you take ibuprofen with food and not on an empty stomach. Use the tramadol for breakthrough pain- pain that is greater than a 7. - Use ICE! Ice really helps to keep the swelling down, and swelling causes pain. Twenty minutes on, and then off, continuously for the first 72hours. After the first 72hrs, you can just use the Tylenol, ibuprofen or Celebrex, and ice, when you have pain. If you are taking narcotic pain medication, follow the instructions on the label and do not drive. Pain medications can make you very constipated. Make sure you are moving your bowels daily. If not, take Miralax, milk of magnesia or magnesium citrate. - Anesthesia makes you very constipated. Take a dose of milk of magnesia the morning after surgery. ? Use an ice bag for the first 72 hours. This helps to decrease swelling, which causes pain. It is normal to be more sore/painful and swollen towards the end of the day and first thing in the morning. ? Gallbladder surgery can make you very nauseated; use Zofran for nausea, for the first 24 hours. The nausea generally stops after 24 hours. ? Use milk of magnesia or prune juice to prevent constipation (this is a particular side effect of pain medication and anesthesia). Do not allow yourself to become constipated. ? Avoid fatty or greasy foods; introduce these slowly, with care, after about 1 month. High-fat foods include: ? Foods that are fried, like Welsh fries and potato chips ? High-fat meats, such as gould, bologna, sausage, ground beef, and ribs, pork products ? High-fat dairy products, such as cheese, ice cream, cream, whole milk, and sour cream ? Pizza ? Foods made with lard or butter ? Creamy soups or sauces ? Meat gravies ? Chocolate ? Oils, such as palm and coconut oil ? Skin of chicken or turkey Nuts and nut butters Avacadoes ? Start out eating very small, bland amounts of food. Do not take pain pills on an empty stomach. - You will notice purple discoloration around the incisions. This is the ?skin glue?. This will wear off on its own. It is OK to shower after 24hrs. You do not need to cover the incisions. - -You should walk frequently, gradually, increasing the distance. You may climb stairs, just go slowly. ? Do not go swimming or sit in a hot tub for two weeks. ? There are no stitches to remove. ? Do not drive your car x72hrs and then only if you have no pain and can move freely. Do not drive if you are taking pain narcotic pain medications. ? You may resume sexual activity whenever pain and soreness subside, usually in 2 weeks. ? Do no lift anything over 5 lbs. for two weeks. ? You may return to work in one week, or when you feel able, provided you do not have to do any heavy lifting or prolonged standing. ? You should return to Dr. Noonan?s office for a post-op appointment about one week after surgery. Please call the Surgical Clinic at: [phone] to schedule an appointment. My Medications for pain and nausea are: Celebrex and ultram, and zofran When to Call the Office: ? If the incision becomes red or swollen, or there is more than a little drainage from it. ? If you develop a temperature higher than 100.5 F. ? If your eyes turn yellow ? Vomiting and can?t keep fluids down -Remove scopalamine patch in 72hrs. This will cause dry mouth and may make you drowsy. -F/u 03/18 at 9:30am Stand Alone Forms: Anesthesia Discharge Inst., Nursing Discharge Form Referrals: Whitney Noonan DO [OSTEOPATHIC DOCTOR] - 03/18/21 9:30 am Activity:: Activity as Tolerated Equipment/Supplies:: No Equipment Needed Diet:: low fat Discharge Orders Discharge Orders: Discharge Order (Routine); Ordered 03/04/21 Ordered By: Whitney Noonan [facility] Medical History Abnormal auditory perception (05/08/15) Adult acne (12/14/17) 12/14/2017 [facility] [place] Derm consult: spironolactone Rx Allergic rhinitis (02/28/15) Anxiety (01/10/15) Asthma NOT formally diagnosed Atopic dermatitis Attention deficit disorder Depression (02/01/15) Deviated nasal septum (04/30/15) Low back pain Migraines Postnasal drip (04/30/15) Surgical History H/O colonoscopy (03/12/18) dr zhao, no abnormalities, repeat ten years Reduction mammoplasty (05/04/03) Vaginal hysterectomy fallopian tube prolapse after Ovaries remain Family History Maternal Aunt Neoplasm Ovarian CA Father Cataract Social History Smoking/Tobacco Use Status: Never Smoking risk assessment performed?: Yes Alcohol Intake: current Alcohol Intake frequency: holidays/special occasions only Drug use: Never Substance use type: does not use Adopted: No Caregiver/Support person: No Foster care: No Household members: family and children Housing: house Number of Children: 2 Communication Needs: None and Corrective Lenses Do you need help understanding health information?: Rarely current occupation: Teacher Pets and animals: Yes Pets and animals: cat(s) and dog(s) Sexually active: No Current gender identity: decline to answer What is your relationship status?: refused to answer How often do you talk on the phone with friends or family?: decline to answer How often do you get together with friends or relatives?: decline to answer How often do you attend denominational or confucianist services?: decline to answer Do you belong to any clubs or organized social groups?: decline to answer Panel score (0-1 are the most socially isolated patients): 0 What type of physical activity do you participate in: walking Duration: 15-30 minutes/day Frequency: daily Mily/Gnosticist: Alevism Special mily needs: No Seatbelt use: always Helmet use: Yes Drive intox or ride w/intox 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
--- NOTE | 2021-03-06 07:49 | W.ANESPOSTOP ---
Postoperative Evaluation Date, Time and Location Date Performed: 03/06/21 Time Performed: 07:00 Patient Location: Med/Surg Vital Signs Most Recent Imported Vital Signs: Most Recent Vital Signs Temp Pulse Resp BP Pulse Ox 35.9 C L 62 15 103/67 96 03/05/21 23:50 03/05/21 23:50 03/05/21 23:50 03/05/21 23:50 03/05/21 23:50 Pain Score Most Recent Pain Score: Most Recent Pain Score Pain Level 7 03/06/21 06:40 Assessment Mental Status: Awake (Alert & Oriented to Patient Baseline) Airway and Respiratory Function: Patent airway with normal (patient baseline) respiratory exam Cardiovascular Function: Hemodynamically Stable Hydration Status: Adequately Hydrated Nausea & Vomiting: No Nausea or Vomiting Pain: Pain is tolerable per patient Peripheral Nerve Block: Patient did not receive a nerve block Postoperative Comments:: Discussed scop patch and importance of washing her hands after she removes it. Discussed that in my attempt to keep her pain and nausea free that she likely got more of the dexmed/ketamine/mag/lidocaine then she needed, and apologized for her having to be so sleepy post operatively. She is happy that she has no nausea and her pain has been comparable to when she got admitted.
[2021-03-06 08:17] VITALS: BP 107/64; PULSE 77; RESP 16; TEMP 36.6; O2SAT 99
[2021-03-06] MEDS: Milk of Magnesia 30 ML CUP PO (08:28)
[2021-03-06] MEDS: Fluconazole 100 MG TAB PO (08:28)
[2021-03-06] MEDS: buPROPion-XL 150 MG TABCR 300 MG PO (08:28)
== END 2021-03-06 12:39 | disposition home or self-care (01) ==
LOC: MS 17:26
PROVIDERS: Admitting Provider Surgery; PCP Family Medicine; Visit Provider Surgery
PROC: 0FT44ZZ Resection of Gallbladder, Percutaneous Endoscopic Approach (ICD-10-PCS; CPT 47562; principal; 2021-03-05 12:15)
DX: K80.10 Calculus of gallbladder with chronic cholecystitis without obstruction (principal); K82.1 Hydrops of gallbladder; E87.6 Hypokalemia; E86.0 Dehydration; Z23 Encounter for immunization; M54.50 Low back pain, unspecified; J45.909 Unspecified asthma, uncomplicated; G43.909 Migraine, unspecified, not intractable, without status migrainosus; F32.A Depression, unspecified; F98.8 Other specified behavioral and emotional disorders with onset usually occurring in childhood and adolescence; F41.8 Other specified anxiety disorders; B37.3 Candidiasis of vulva and vagina; K91.0 Vomiting following gastrointestinal surgery
CPT/HCPCS: 47562; 90686; 88304; G0378; J0131; J1100; J1885; J2001; J2250; J2270; J2405; J2543; J2704; J3475

== ENCOUNTER → 2021-10-11 00:04 | Outpatient (CLI) | payer BC, SELFPAY | PROVIDERS: PCP Family Medicine; Visit Provider Family Medicine ==

== ENCOUNTER → 2021-12-20 00:14 | Outpatient (CLI) | payer BC, SELFPAY ==
--- NOTE | 2021-12-20 08:00 | DI.MAMMO_ITS ---
Exam(s) MAMMO SCREENING EXAM: MAMMO SCREENING CLINICAL HISTORY: screening,Z12.39 TECHNIQUE: Mammograms were interpreted according to the usual protocol including computer analysis w [employer] CAD system, tomosynthesis and C-view imaging. COMPARISON: 2018 FINDINGS: The breasts are composed of scattered fibroglandular densities, Breast Density category B. No suspicious masses or suspicious microcalcifications are seen. There is mild scarring related to b ilateral breast reduction. No skin thickening or abnormal axillary lymph nodes are seen. There has been no significant change from prior exams. IMPRESSION: BI-RADS Category 1, Negative mammogram Yearly screening mammography is recommended. Breast Density - Category B, scattered fibroglandular densities. A negative radiographic report should not delay biopsy if a dominant or clinically suspicious mass is present. Up to ten percent of cancers are not identified on mammography. A negative report may reinforce clinical impression. Adenosis and dense breasts may obscure an underlying neoplasm. False positive reports average 6 to 10%. Patient will receive a letter notifying them of these results.
== END ==
PROVIDERS: PCP Family Medicine; Visit Provider Family Medicine
DX: Z12.31 Encounter for screening mammogram for malignant neoplasm of breast (principal)
CPT/HCPCS: 77063; 77067

== ENCOUNTER 2023-05-02 15:05 | Outpatient (REF) | payer BC, SELFPAY ==
[2023-05-02 15:54] LABS: ALT 26 U/L (14-59); AST 15 U/L (15-37); Albumin 3.9 g/dL (3.4-5.0); Alkaline Phosphatase 80 U/L (46-116); Anion Gap 5.2 mmol/L (3-11); BUN 14 mg/dL (7-18); Bilirubin, Total 0.5 mg/dL (0.2-1.0); CO2 30.8 mmol/L (21.0-32.0); Calcium 9.5 mg/dL (8.5-10.1); Chloride 104 mmol/L (98-107); Estimated GFR 65.71 (mL/min/1.73m2); Glucose 80 mg/dL (74-106); Sodium 140 mmol/L (136-145); Total Protein 7.2 g/dL (6.4-8.2)
== END 2023-05-02 15:06 | disposition home or self-care (01) ==
LOC: LBN 15:05
PROVIDERS: PCP Family Medicine; Visit Provider Nurse Practitioner Family
DX: U07.1 COVID-19 (principal)
CPT/HCPCS: 80053

== ENCOUNTER → 2023-10-30 00:11 | Outpatient (CLI) | payer BC, SELFPAY ==
--- NOTE | 2023-10-30 06:45 | DI.MAMMO_ITS ---
Exam(s) MAMMO SCREENING EXAM: MAMMO SCREENING CLINICAL HISTORY: screening,z12.39 TECHNIQUE: Bilateral full field digital CC and MLO mammographic images were obtained with 3D tomosyn thesis and utilizing computer aided detection (CAD). COMPARISON: Available for comparison. FINDINGS: Masses/Architectural Distortion: None seen. The patient has had prior bilateral breast reduction surg gladis. Microcalcifications: No suspicious pleomorphic-type are seen. Skin Thickening/Nipple Retraction: None. IMPRESSION: 1. No significant interval change with no specific features of malignancy noted. 2. Unless there is more urgent need, screening mammography is recommended, as per [employer] guidelines. BI-RADS Category 1 - Negative Breast Density - Category B - Scattered areas of fibroglandular density Breast density category C or D implies that the patient has dense breast tissue. Dense breast tissue is very common and is not abnormal but dense breast tissue can make it harder to find cancer on a ma mmogram. Also, dense breast tissue may increase their breast cancer risk. This information about the result of the mammogram report was provided to the patient to raise their awareness. Use this report when you speak with the patient about their risks for breast cancer, which includes their family hist ory. At that time, you may recommend for more screening tests (Ultrasound or MRI) as they might be us eful based on their risk. A negative radiographic report should not delay biopsy if a dominant or clinically suspicious mass is present. Up to ten percent of cancers are not identified on mammography. A negative report may reinforce clinical impression. Adenosis and dense breasts may obscure an underlying neoplasm. False positive reports average 6 to 10%. Patient will receive a letter notifying them of these results.
== END ==
PROVIDERS: PCP Family Medicine; Visit Provider Family Medicine
DX: Z12.39 Encounter for other screening for malignant neoplasm of breast (principal)
CPT/HCPCS: 77063; 77067

== ENCOUNTER 2023-10-30 01:28 | Outpatient (CLI) | payer BC, SELFPAY ==
[2023-10-30 09:35] LABS: Calculated LDL 86 mg/dL (<100); Cholesterol 167 mg/dL (<200); HDL Cholesterol 65 mg/dL (40-60); Triglyceride 81 mg/dL (<150)
== END 2023-10-30 01:29 | disposition home or self-care (01) ==
LOC: LBO 01:28
PROVIDERS: PCP Family Medicine; Visit Provider Family Medicine
DX: Z13.6 Encounter for screening for cardiovascular disorders (principal); Z77.011 Contact with and (suspected) exposure to lead
CPT/HCPCS: 36415; 80061; 83655

== ENCOUNTER 2024-05-31 02:18 | Outpatient (CLI) | payer OTHER, SELFPAY ==
--- NOTE | 2024-05-31 07:45 | DI.MRI_ITS ---
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 COMPARISON: There are no plain films of the right knee available at the time of this MRI interpretat ion. FINDINGS: EFFUSION: There is a small-moderate size knee joint effusion and there is a E Simmons's cyst in the med ial popliteal fossa which measures 4 cm length by 1 cm AP x 0.8 cm wide. There are no obvious loose intra-articular bodies. There is subcutaneous soft tissue edema anterior to the patella and along the anterior aspect of the patellar ligament. There is no defined fluid collection to suggest prepatellar bursitis. There is a tiny amount of fluid between the inferior aspect of the patellar ligament and the anterior tibial tu bercle within the most inferior aspect of the intra-articular Hoffa fat. This is most probably just part of the joint effusion. There is no abnormal signal within the patellar ligament nor within the anterior tibial tubercle. MARROW:There is no evidence of fracture, bone contusion, nor osteochondral defects.. There are no si gnificant osseous lesions. There is, however, a single degenerative subarticular cyst in the mid tib ial plateau subjacent to the medial tibial spine, this measuring 3 x 4 mm and with some mild surroun ding bone edema. PATELLOFEMORAL COMPARTMENT: The quadriceps tendon is intact. The patellar ligament is intact. There is some intrasubstance edema and thin cleft with in the retropatellar cartilage over the latera l facet and there is also significant thinning of the articular cartilage over the adjacent anterior aspect of the lateral femoral condyle, best seen on the axial images. There are no degenerative suba rticular cysts nor bone edema evident within the patella.There is no intraosseous signal to suggest r ecent patellar dislocation. There are no patellar retinacular tears. CRUCIATE LIGAMENTS: The anterior cruciate ligament is intact.The posterior cruciate ligament is intac t. MEDIAL COMPARTMENT/MEDIAL MENISCUS: There is a tear of the posterior horn of the medial meniscus loca olimpia 9 mm from the root attachment. There no flipped meniscal fragments. There is no tear in the out er 3rd of the medial meniscus. Frontal horn is intact. There is no meniscocapsular separation.. Th ere is some very mild focal subarticular edema in the outer aspect of the medial femoral condyle over the main weight-bearing surface. There is no formed osteochondral defect at this level. No margina l osteophytes in the medial compartment. MEDIAL COLLATERAL LIGAMENT: Intact LATERAL COMPARTMENT/LATERAL MENISCUS: There is no evidence of lateral meniscal tear.There are no jimy dral defects, osteochondral defects, subarticular marrow edema, nor osteophytes evident. ILIOTIBIAL BAND: Intact LATERAL COLLATERAL LIGAMENT COMPLEX: The fibular collateral ligament is intact. The biceps femoris t endon is intact.Popliteus muscle and tendon are intact. IMPRESSION: 1. There is tear of the posterior horn of the medial meniscus adjacent to the root insertion site. N o flipped meniscal fragments. No bucket-handle configuration. The anterior horn of the medial menis cus appears intact. There is very mild focal subarticular edema in the main weight-bearing surface o f the medial femoral condyle. There is no osteochondral defect at this level. No prominent articula r cartilage loss and no marginal osteophytes evident in the medial compartment. 2. No significant findings in the lateral compartment. 3. 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 However, there is thinning of the articular cartil age over the corresponding anterior aspect of the lateral femoral condyle. 4. Cruciate and collateral ligaments are intact as is the iliotibial band 5. Moderate size joint effusion and thin 4 cm length Simmons cyst in the popliteal fossa. There are n o obvious loose intra-articular bodies. Other findings as above. DATA REPOSITORY:
== END 2024-05-31 02:38 ==
PROVIDERS: PCP Family Medicine; Visit Provider Family Medicine
DX: M23.221 Derangement of posterior horn of medial meniscus due to old tear or injury, right knee (principal)
CPT/HCPCS: 73721

== ENCOUNTER 2024-09-23 19:14 | Outpatient (REF) | payer BC, SELFPAY | END 2024-09-23 19:15 | disposition home or self-care (01) | LOC: LBN 19:14 | PROVIDERS: PCP Family Medicine; Visit Provider Physician Assistant Medical | DX: J02.9 Acute pharyngitis, unspecified (principal) | CPT/HCPCS: 87070 ==

== ENCOUNTER 2025-02-23 13:28 | Outpatient (CLI) | payer BC, SELFPAY ==
--- NOTE | 2025-02-23 | DI.RAD_ITS ---
Exam(s) XR SOFT TISSUE NECK EXAM: XR SOFT TISSUE NECK CLINICAL HISTORY: H/O STREP THROAT,? EPIGLOTTIS,PERSONAL H/O OTHER DISEASE,Z87.09. TECHNIQUE: 2D digital imaging was performed. Two images were obtained. COMPARISON: No exams were available for comparison FINDINGS: BONES: No acute fracture is present. There are mild degenerative changes seen from C4-5 through C6-C7. SOFT TISSUE:Airway is patent without radiopaque foreign body. Epiglottis is not enlarged. Prevertebral soft tissues appear unremarkable. IMPRESSION: Unremarkable radiographs of soft tissue neck. DATA REPOSITORY: RADIATION DOSE DELIVERED:
== END 2025-02-23 13:48 ==
PROVIDERS: PCP Family Medicine; Visit Provider Physician Assistant Medical
DX: Z87.09 Personal history of other diseases of the respiratory system (principal); Z12.2 Encounter for screening for malignant neoplasm of respiratory organs
CPT/HCPCS: 70360

== ENCOUNTER 2025-02-23 15:17 | Outpatient (REF) | payer BC, SELFPAY | END 2025-02-23 15:18 | disposition home or self-care (01) | LOC: LBN 15:17 | PROVIDERS: PCP Family Medicine; Visit Provider Physician Assistant Medical | DX: Z87.09 Personal history of other diseases of the respiratory system (principal) | CPT/HCPCS: 87070 ==